=== PATIENT | female | born 1935 | race Caucasian/White ===

== ENCOUNTER 2018-07-16 12:01 | Inpatient (IN) ==
[2018-07-16] MEDS: *HR* HYDROcodone/Acet 5/325 mg TABLET PO PRN (13:51)
[2018-07-16] MEDS: Magnesium Oxide 400 MG TABLET PO SCH (13:52)
[2018-07-16] MEDS: Acetaminophen 325 MG TABLET PO SCH ×2 (16:58→22:58)
[2018-07-16] MEDS ORDERED: Albuterol 2.5 MG/3 ML NEBULIZER IH SCH (18:00)
[2018-07-16] MEDS ORDERED: ACETAMINOPHEN 650 MG PO SCH (18:00)
[2018-07-16] MEDS: Albuterol 2.5 MG/3 ML NEBULIZER IH PRN (19:24)
[2018-07-16] MEDS: Gabapentin 300 MG CAPSULE PO SCH (20:37)
[2018-07-16] MEDS: clonazePAM 0.5 MG TABLET PO SCH (20:37)
[2018-07-16] MEDS: PRO-OMEGA PO SCH (20:37)
[2018-07-16] MEDS: [UNRECOGNIZED DRUG - OTHER] PO SCH (20:37)
[2018-07-16] MEDS: Apixaban 5 MG TABLET PO SCH (20:37)
[2018-07-16] MEDS: RESTASIS OPTH OP SCH (20:39)
[2018-07-16] MEDS ORDERED: Budesonide/Formoterol 160/4.5 1 PUFF INH IH SCH (22:00)
[2018-07-17] MEDS: Albuterol 2.5 MG/3 ML NEBULIZER IH PRN ×2 (01:41→18:00)
[2018-07-17] MEDS: Acetaminophen 325 MG TABLET PO SCH ×3 (06:43→17:41)
[2018-07-17] MEDS ORDERED: Oxymetazoline Nasal SPRAY BOTTLE NS PRN (09:15)
[2018-07-17] MEDS: Apixaban 5 MG TABLET PO SCH ×2 (09:25→19:47)
[2018-07-17] MEDS: clonazePAM 0.5 MG TABLET PO SCH ×2 (09:25→19:47)
[2018-07-17] MEDS: [UNRECOGNIZED DRUG - OTHER] PO SCH ×2 (09:25→19:47)
[2018-07-17] MEDS: PRO-OMEGA PO SCH ×2 (09:25→19:47)
[2018-07-17] MEDS: Gabapentin 300 MG CAPSULE PO SCH ×2 (09:26→19:47)
[2018-07-17] MEDS: *HR* HYDROcodone/Acet 5/325 mg TABLET PO PRN ×2 (09:26→17:51)
[2018-07-17] MEDS: Furosemide 40 MG TABLET PO SCH (09:26)
[2018-07-17] MEDS: RESTASIS OPTH OP SCH ×2 (09:26→19:48)
[2018-07-17] MEDS ORDERED: VILANTEROL PO SCH (10:00)
[2018-07-17] MEDS ORDERED: FLUTICASONE FUROATE PO SCH (10:00)
[2018-07-17] MEDS: Budesonide/Formoterol 160/4.5 1 PUFF INH IH SCH ×2 (10:19→21:54)
[2018-07-17] MEDS: Magnesium Oxide 400 MG TABLET PO SCH (12:57)
[2018-07-18] MEDS: Acetaminophen 325 MG TABLET PO SCH ×4 (01:00→18:13)
[2018-07-18] MEDS: *HR* HYDROcodone/Acet 5/325 mg TABLET PO PRN ×3 (02:22→20:38)
[2018-07-18] MEDS: PRO-OMEGA PO SCH ×2 (08:07→20:26)
[2018-07-18] MEDS: RESTASIS OPTH OP SCH ×2 (08:07→20:27)
[2018-07-18] MEDS: [UNRECOGNIZED DRUG - OTHER] PO SCH ×2 (08:07→20:26)
[2018-07-18] MEDS: clonazePAM 0.5 MG TABLET PO SCH ×2 (08:07→20:26)
[2018-07-18] MEDS: Furosemide 40 MG TABLET PO SCH (08:07)
[2018-07-18] MEDS: Gabapentin 300 MG CAPSULE PO SCH ×2 (08:07→20:26)
[2018-07-18] MEDS: Apixaban 5 MG TABLET PO SCH ×2 (08:08→20:26)
[2018-07-18] MEDS: Budesonide/Formoterol 160/4.5 1 PUFF INH IH SCH ×2 (10:14→21:03)
[2018-07-18] MEDS: Albuterol 2.5 MG/3 ML NEBULIZER IH PRN ×2 (12:00→21:02)
--- NOTE | 2018-07-18 12:42 | Internal Med Progress Note ---
Date of Encounter: 07/18/18 Time of Encounter: 12:30 - Assessment and plan (1) Weakness Current Visit: Yes Status: Acute Assessment and plan: July 18. Continue PT/OT intervention. (2) Hypertension Current Visit: No Status: Chronic Assessment and plan: July 18. Continue Betapace and Lasix Qualifiers: Hypertension type: essential hypertension Qualified Code(s): I10 - Essential (primary) hypertension (3) Atrial fibrillation Current Visit: No Status: Chronic Assessment and plan: July 18. Continue Eliquis and Betapace Qualifiers: Atrial fibrillation type: chronic Qualified Code(s): I48.2 - Chronic atrial fibrillation (4) Anemia Current Visit: No Status: Acute Assessment and plan: July 18. Anemia testing 07/14/2018 showed no factor deficiency. Continue to monitor labs. Qualifiers: Anemia type: unspecified type Qualified Code(s): D64.9 - Anemia, unspecified (5) Right middle lobe syndrome Current Visit: No Status: Acute Assessment and plan: July 18. Attempts will be made to retrieve bronchoscopy report from [facility] January 2018. (6) Leg pain, bilateral Current Visit: Yes Status: Acute Assessment and plan: July 18. She has had 3 right foot surgeries with history of ankle fusion. Continue scheduled Tylenol and gabapentin with prn [place]. Add scheduled Cymbalta - Subjective Interval history: July 18. She was hospitalized in acute-care July 12- after presenting with acute bronchitis. Antibiotics were discontinued after pro calcitonin level returned WNL at 0.04. Chest CT showed complete collapse of RML. She developed acute worsening of which improved prior to discharge. It was felt she would benefit from therapy in swing bed prior to returning to independent living at home. She has no new complaints today except poor sleep last night due to significant pain in her feet right more than left. - Constitutional Vitals: Temp Pulse Resp BP Pulse Ox 98.0 F 67 14 116/76 94 07/18/18 07:41 07/18/18 07:41 07/18/18 12:00 07/18/18 07:41 07/18/18 12:00 Exam: She is sitting in a chair at bedside resting comfortably. Her affect is bright and cheerful. Heart is regular without murmurs gallops or ectopics. Lungs are clear. Extremities show no pitting edema. I reviewed her medications and lab results. Consult Discharge Plan - Plan Referrals: Harsh Santos [Primary Care Provider] - 1 week
[2018-07-18] MEDS: Magnesium Oxide 400 MG TABLET PO SCH (12:45)
[2018-07-19] MEDS: Acetaminophen 325 MG TABLET PO SCH ×4 (00:39→16:57)
[2018-07-19] MEDS: *HR* HYDROcodone/Acet 5/325 mg TABLET PO PRN ×3 (03:42→20:50)
[2018-07-19] MEDS: clonazePAM 0.5 MG TABLET PO SCH ×2 (09:22→20:50)
[2018-07-19] MEDS: Apixaban 5 MG TABLET PO SCH ×2 (09:22→20:50)
[2018-07-19] MEDS: Gabapentin 300 MG CAPSULE PO SCH ×2 (09:23→20:50)
[2018-07-19] MEDS: Furosemide 40 MG TABLET PO SCH (09:23)
[2018-07-19] MEDS: [UNRECOGNIZED DRUG - OTHER] PO SCH ×2 (09:27→20:50)
[2018-07-19] MEDS: PRO-OMEGA PO SCH ×2 (09:28→20:50)
[2018-07-19] MEDS: RESTASIS OPTH OP SCH ×2 (09:28→20:50)
[2018-07-19] MEDS: Albuterol 2.5 MG/3 ML NEBULIZER IH PRN ×2 (10:03→20:08)
[2018-07-19] MEDS: Budesonide/Formoterol 160/4.5 1 PUFF INH IH SCH ×2 (10:03→21:30)
[2018-07-19] MEDS: Magnesium Oxide 400 MG TABLET PO SCH (12:25)
[2018-07-20] MEDS: Acetaminophen 325 MG TABLET PO SCH ×5 (00:59→23:05)
[2018-07-20] MEDS: Furosemide 40 MG TABLET PO SCH (10:12)
[2018-07-20] MEDS: Apixaban 5 MG TABLET PO SCH ×2 (10:13→21:06)
[2018-07-20] MEDS: *HR* HYDROcodone/Acet 5/325 mg TABLET PO PRN ×2 (10:13→23:05)
[2018-07-20] MEDS: Gabapentin 300 MG CAPSULE PO SCH ×2 (10:14→21:06)
[2018-07-20] MEDS: clonazePAM 0.5 MG TABLET PO SCH ×2 (10:14→21:06)
[2018-07-20] MEDS: [UNRECOGNIZED DRUG - OTHER] PO SCH ×2 (10:22→21:11)
[2018-07-20] MEDS: RESTASIS OPTH OP SCH ×2 (10:22→21:07)
[2018-07-20] MEDS: PRO-OMEGA PO SCH ×2 (10:22→21:12)
[2018-07-20] MEDS: Budesonide/Formoterol 160/4.5 1 PUFF INH IH SCH ×2 (10:45→22:07)
[2018-07-20] MEDS: Albuterol 2.5 MG/3 ML NEBULIZER IH PRN ×2 (10:46→22:07)
[2018-07-20] MEDS: Magnesium Oxide 400 MG TABLET PO SCH (12:05)
[2018-07-21] MEDS: Acetaminophen 325 MG TABLET PO SCH ×3 (06:21→17:36)
[2018-07-21] MEDS: PRO-OMEGA PO SCH ×2 (09:17→20:36)
[2018-07-21] MEDS: [UNRECOGNIZED DRUG - OTHER] PO SCH ×2 (09:17→20:36)
[2018-07-21] MEDS: clonazePAM 0.5 MG TABLET PO SCH ×2 (09:18→20:36)
[2018-07-21] MEDS: Gabapentin 300 MG CAPSULE PO SCH ×2 (09:18→20:36)
[2018-07-21] MEDS: Furosemide 40 MG TABLET PO SCH (09:18)
[2018-07-21] MEDS: Apixaban 5 MG TABLET PO SCH ×2 (09:18→20:36)
[2018-07-21] MEDS: RESTASIS OPTH OP SCH ×2 (09:19→20:36)
[2018-07-21] MEDS: Budesonide/Formoterol 160/4.5 1 PUFF INH IH SCH ×2 (11:07→22:22)
[2018-07-21] MEDS: *HR* HYDROcodone/Acet 5/325 mg TABLET PO PRN (12:20)
[2018-07-21] MEDS: Magnesium Oxide 400 MG TABLET PO SCH (12:21)
[2018-07-21] MEDS: Albuterol 2.5 MG/3 ML NEBULIZER IH PRN (22:22)
[2018-07-22] MEDS: *HR* HYDROcodone/Acet 5/325 mg TABLET PO PRN ×2 (00:07→12:05)
[2018-07-22] MEDS: Acetaminophen 325 MG TABLET PO SCH ×4 (00:07→17:41)
[2018-07-22] MEDS: clonazePAM 0.5 MG TABLET PO SCH ×2 (09:34→22:03)
[2018-07-22] MEDS: Apixaban 5 MG TABLET PO SCH ×2 (09:34→22:03)
[2018-07-22] MEDS: Gabapentin 300 MG CAPSULE PO SCH ×2 (09:34→22:03)
[2018-07-22] MEDS: Furosemide 40 MG TABLET PO SCH (09:34)
[2018-07-22] MEDS: [UNRECOGNIZED DRUG - OTHER] PO SCH ×2 (09:35→22:04)
[2018-07-22] MEDS: RESTASIS OPTH OP SCH ×2 (09:35→22:04)
[2018-07-22] MEDS: PRO-OMEGA PO SCH ×2 (09:35→22:04)
[2018-07-22] MEDS: Budesonide/Formoterol 160/4.5 1 PUFF INH IH SCH ×2 (10:29→21:20)
[2018-07-22] MEDS: Albuterol 2.5 MG/3 ML NEBULIZER IH PRN ×2 (10:31→21:21)
[2018-07-22] MEDS: Magnesium Oxide 400 MG TABLET PO SCH (12:05)
--- NOTE | 2018-07-22 17:19 | Internal Med Progress Note ---
Date of Encounter: 07/22/18 Time of Encounter: 17:10 - Assessment and plan (1) Weakness Current Visit: Yes Status: Acute Assessment and plan: July 18. Continue PT/OT intervention. July 22. Anticipate discharge home 07/24/2018. (2) Hypertension Current Visit: No Status: Chronic Assessment and plan: July 18. Continue Betapace and Lasix Qualifiers: Hypertension type: essential hypertension Qualified Code(s): I10 - Essential (primary) hypertension (3) Atrial fibrillation Current Visit: No Status: Chronic Assessment and plan: July 18. Continue Eliquis and Betapace Qualifiers: Atrial fibrillation type: chronic Qualified Code(s): I48.2 - Chronic atrial fibrillation (4) Anemia Current Visit: No Status: Acute Assessment and plan: July 18. Anemia testing 07/14/2018 showed no factor deficiency. Continue to monitor labs. July 22. Recheck labs in a.m. Qualifiers: Anemia type: unspecified type Qualified Code(s): D64.9 - Anemia, unspecified (5) Right middle lobe syndrome Current Visit: No Status: Acute Assessment and plan: July 18. Attempts will be made to retrieve bronchoscopy report from [facility] January 2018. (6) Leg pain, bilateral Current Visit: Yes Status: Acute Assessment and plan: July 18. She has had 3 right foot surgeries with history of ankle fusion. Continue scheduled Tylenol and gabapentin with prn [place]. Add scheduled Cymbalta July 22. She did not mention leg pain today. Continue present Rx. (7) Hypomagnesemia Current Visit: No Status: Resolved Assessment and plan: July 22. Discontinue magnesium oxide. - Subjective Interval history: July 18. She was hospitalized in acute-care July 12- after presenting with acute bronchitis. Antibiotics were discontinued after pro calcitonin level returned WNL at 0.04. Chest CT showed complete collapse of RML. She developed acute worsening of which improved prior to discharge. It was felt she would benefit from therapy in swing bed prior to returning to independent living at home. She has no new complaints today except poor sleep last night due to significant pain in her feet right more than left. July 22. She reports looseness of stools and nasal congestion. - Constitutional Vitals: Temp Pulse Resp BP Pulse Ox 98.3 F 66 16 122/60 98 07/22/18 11:58 07/22/18 11:58 07/22/18 11:58 07/22/18 11:58 07/22/18 11:58 Exam: She is sitting in chair at bedside resting comfortably. Her affect is bright and cheerful. I reviewed her medications and lab results. Consult Discharge Plan - Plan Referrals: Harsh Santos [Primary Care Provider] - 1 week
[2018-07-22] MEDS: Oxymetazoline Nasal SPRAY BOTTLE NS SCH (17:41)
[2018-07-23] MEDS: Acetaminophen 325 MG TABLET PO SCH ×4 (00:49→17:00)
[2018-07-23] MEDS: Oxymetazoline Nasal SPRAY BOTTLE NS SCH ×2 (06:22→17:00)
[2018-07-23 08:12] LABS: Hematocrit 32.4 % (35.3-44.9); Hemoglobin 10.2 g/dL (11.5-15.4); Mean Corpuscular HGB Conc 31.5 g/dL (31.6-35.5); Mean Corpuscular Hemoglobin 28.6 pg (28.0-33.3); Mean Corpuscular Volume 90.8 fL (83.0-100.0); Mean Platelet Volume 13.2 fL (9.4-12.4); Red Blood Count 3.57 M/mcL (3.82-4.97); White Blood Count 5.4 K/mcL (4.3-11.1)
[2018-07-23 08:25] LABS: Platelet Count 52 K/mcL (140-400)
[2018-07-23] MEDS: Gabapentin 300 MG CAPSULE PO SCH ×2 (09:08→21:49)
[2018-07-23] MEDS: Apixaban 5 MG TABLET PO SCH ×2 (09:09→21:49)
[2018-07-23] MEDS: clonazePAM 0.5 MG TABLET PO SCH ×2 (09:09→21:50)
[2018-07-23] MEDS: Furosemide 40 MG TABLET PO SCH (09:09)
[2018-07-23] MEDS: PRO-OMEGA PO SCH ×2 (09:10→21:50)
[2018-07-23] MEDS: [UNRECOGNIZED DRUG - OTHER] PO SCH ×2 (09:10→21:50)
[2018-07-23] MEDS: RESTASIS OPTH OP SCH ×2 (09:11→21:50)
[2018-07-23 09:13] LABS: Lymphocytes # 1.6 K/mcL (0.6-4.6); Monocytes # 2.1 K/mcL (0.0-1.3); Neutrophils # 1.7 K/mcL (1.6-8.9); Platelet Estimate Decreased (Normal); Reactive Lymphocytes Present (Not Present)
[2018-07-23] MEDS: *HR* HYDROcodone/Acet 5/325 mg TABLET PO PRN (09:23)
[2018-07-23 09:40] LABS: BUN/Creatinine Ratio 17 (6-26); Blood Urea Nitrogen 16 mg/dL (8-23); Calcium 8.8 mg/dL (8.6-10.3); Carbon Dioxide 40 mEq/L (23-29); Chloride 98 mEq/L (98-107); Glucose 126 mg/dL (70-105); Magnesium 1.6 mg/dL (1.6-2.6); Osmolality,Calculated 295 (280-300); Potassium 4.1 mEq/L (3.5-5.1); Sodium 141 mEq/L (136-145); eGFR For African Americans > 60 (> 60); eGFR For Non-African Americans 57 (> 60)
[2018-07-23] MEDS: Albuterol 2.5 MG/3 ML NEBULIZER IH PRN (10:23)
[2018-07-23] MEDS: Budesonide/Formoterol 160/4.5 1 PUFF INH IH SCH ×2 (10:23→21:41)
[2018-07-23 18:32] VITALS: BP 164/66
[2018-07-24] MEDS: Acetaminophen 325 MG TABLET PO SCH ×2 (00:03→06:41)
[2018-07-24] MEDS: Oxymetazoline Nasal SPRAY BOTTLE NS SCH (06:41)
[2018-07-24] MEDS: Furosemide 40 MG TABLET PO SCH (08:44)
[2018-07-24] MEDS: Apixaban 5 MG TABLET PO SCH (08:44)
[2018-07-24] MEDS: Gabapentin 300 MG CAPSULE PO SCH (08:44)
[2018-07-24] MEDS: clonazePAM 0.5 MG TABLET PO SCH (08:45)
[2018-07-24] MEDS: PRO-OMEGA PO SCH (08:47)
[2018-07-24] MEDS: [UNRECOGNIZED DRUG - OTHER] PO SCH (08:48)
[2018-07-24] MEDS: RESTASIS OPTH OP SCH (08:49)
[2018-07-24] MEDS: Budesonide/Formoterol 160/4.5 1 PUFF INH IH SCH (11:24)
--- NOTE | 2018-07-24 11:46 | Discharge Summary ---
Date of Encounter: 07/24/18 Time of Encounter: 11:30 - Discharge Diagnosis (1) Weakness Priority: Primary Status: Acute (2) Hypertension Priority: Secondary Status: Chronic Qualifiers: Hypertension type: essential hypertension Qualified Code(s): I10 - Essential (primary) hypertension (3) Atrial fibrillation Priority: Secondary Status: Chronic Qualifiers: Atrial fibrillation type: chronic Qualified Code(s): I48.2 - Chronic atrial fibrillation (4) Anemia Priority: Secondary Status: Chronic Qualifiers: Anemia type: unspecified type Qualified Code(s): D64.9 - Anemia, unspecified (5) Right middle lobe syndrome Priority: Secondary Status: Acute (6) Leg pain, bilateral Priority: Secondary Status: Acute (7) Hypomagnesemia Priority: Secondary Status: Resolved Hospital course: Ms. Veronica is a 83 year old female was hospitalized in acute-care July 12- after presenting with acute bronchitis. Antibiotics were discontinued after pro calcitonin level returned WNL at 0.04. Chest CT showed complete collapse of RML. She developed acute renal function worsening which improved prior to discharge. It was felt she would benefit from therapy in swing bed prior to returning to independent living at home. She continued physical therapy and occupational therapy evaluation. She had gradual improvement and was able to ambulate more than 200 feet of discharge. Blood pressure remained well controlled on Betapace and Lasix. BUN and creatinine showed gradual improvement to 16 and 0.93 respectively by 07/23/2018. Estimated GFR was 57. A copy of the January 2018 bronchoscopy report was obtained from [facility]. There was significant mucus plugging throughout the tracheobronchial tree. 1 L of lavage fluid was used to clear the lungs. I reviewed this report with the patient and her daughter on the day of discharge and told them I felt it was possible that the right middle lobe collapse seen on chest CT scan during her acute care stay was due to mucus plugging. Her PCP can refer her to pulmonology for follow-up. On July 24 arrangements were complete for her to be discharged home. She chose to follow with Dr. Leger after discharge. - Time Spent with Patient Total time spent providing and/or coordinating discharge services: - Discharge Medications Prescriptions: Continued Acetaminophen [8Hr Arthritis Pain Relief] 650 mg PO Q6HR Sotalol [Betapace] 40 mg PO QPM Sertraline [Zoloft] 25 mg PO DAILY Sotalol [Betapace] 80 mg PO QAM Omeprazole [PriLOSEC] 40 mg PO DAILY Lidocaine Patch [Lidoderm 5% patch] 1 each TP DAILY Gabapentin [Neurontin] 600 mg PO BID Budesonide/Formoterol 160/4.5 [Symbicort 160/4.5] 1 puff IH BIDR Apixaban [Eliquis] 5 mg PO BID Albuterol Sulfate [Proair Hfa] 1 puff IH QID PRN PRN Reason: Wheezing Albuterol Neb [Proventil Neb] 2.5 mg IH Q6HR Gluc/Noam-MSM#1/C/Michael/Apolinar/Bor [Osteo Bi-Flex Caplet] 1 each PO Biotin 1 mg PO Furosemide [Lasix] 40 mg PO DAILY tablet Potassium Chloride 10 meq PO BIDWM tab.er.prt Changed clonazePAM [Clonazepam] 0.25 mg PO BID PRN #0 PRN Reason: Anxiety Discontinued Magnesium Oxide [Mag-Ox] 400 mg PO Q24H tablet Home Medications: Acetaminophen [8Hr Arthritis Pain Relief] 650 mg PO Q6HR 07/12/18 [History] Albuterol Neb [Proventil Neb] 2.5 mg IH Q6HR 07/12/18 [History] Albuterol Sulfate [Proair Hfa] 1 puff IH QID PRN 07/12/18 [History] Apixaban [Eliquis] 5 mg PO BID 07/12/18 [History] Biotin 1 mg PO 07/12/18 [History] Budesonide/Formoterol 160/4.5 [Symbicort 160/4.5] 1 puff IH BIDR 07/12/18 [History] Gabapentin [Neurontin] 600 mg PO BID 07/12/18 [History] Gluc/Noam-MSM#1/C/Michael/Apolinar/Bor [Osteo Bi-Flex Caplet] 1 each PO 07/12/18 [History] Lidocaine Patch [Lidoderm 5% patch] 1 each TP DAILY 07/12/18 [History] Omeprazole [PriLOSEC] 40 mg PO DAILY 07/12/18 [History] Sertraline [Zoloft] 25 mg PO DAILY 07/12/18 [History] Sotalol [Betapace] 40 mg PO QPM 07/12/18 [History] Sotalol [Betapace] 80 mg PO QAM 07/12/18 [History] Furosemide [Lasix] 40 mg PO DAILY tablet 07/16/18 [Rx] Potassium Chloride 10 meq PO BIDWM tab.er.prt 07/16/18 [Rx] clonazePAM [Clonazepam] 0.25 mg PO BID PRN #0 07/24/18 [Rx] Allergies/Adverse Reactions: Allergy/AdvReac Type Severity Reaction Status Date / Time tramadol [From Ultram] AdvReac Itching Verified 07/12/18 18:56 Date of admission: 07/16/18 12:14 Primary care physician: Reuben Leger M.D. Consults: 07/16/18 12:39 Consult to Occupational Therapy [CONS] Routine Comment: Evaluate, develop, and implement plan of care Reason for Consult: Evaluate, develop, and implement plan of care Does patient have active BEDREST order?: No Is patient medically & hemodynamically stable?: Yes Patient assessed for mobility or mobilized this visit?: No Consult to Physical Therapy [CONS] Routine Comment: Evaluate, develop, and implement plan of care Reason for Consult: Evaluate, develop, and implement plan of care Does patient have active BEDREST order?: No Is patient medically & hemodynamically stable?: Yes Patient assessed for mobility or mobilized this visit?: No Consult to Rehab Office Coordinator [CONS] Routine Reason for SW Consult: Discharge Planning - Constitutional Vitals: Temp Pulse Resp BP Pulse Ox 98.3 F 67 20 164/66 96 07/23/18 23:47 07/23/18 23:47 07/23/18 23:47 07/23/18 23:47 07/23/18 23:47 - Patient Status Disposition: Home, Self-Care - Discharge Instructions Follow Up With: Reuben Leger MD [Partnered Physician] - 1 week - Diet and Activity Activity: as per physical therapy Diet: advance to your usual diet
--- NOTE | 2018-07-24 12:04 | Physician Discharge Referral ---
Home Health/Hosp Referral Info Transfer to: Home Health Attending Provider: Everardo Provider in Charge Post Discharge: PCP Nellie) - Diagnosis (1) Weakness Priority: Primary Status: Acute (2) Hypertension Priority: Secondary Status: Chronic (3) Atrial fibrillation Priority: Secondary Status: Chronic (4) Anemia Priority: Secondary Status: Chronic (5) Right middle lobe syndrome Priority: Secondary Status: Acute (6) Leg pain, bilateral Priority: Secondary Status: Acute (7) Hypomagnesemia Priority: Secondary Status: Resolved - Respiratory Orders Smoking Cessation: Smoking cessation has been advised. For more information, call the [place] Tobacco Quit Line at 8-841-FMXI-NOW. - Diet/Nutrition Diet/Nutrition Orders: Cardiac, No Concentrated Sweets - Activity Activity Orders: Walker - Services Needed Following services are medically necessary services: Nursing, Home Health Aide, Physical Therapy, Occupational Therapy - Transfer Medications Home Medications: Acetaminophen [8Hr Arthritis Pain Relief] 650 mg PO Q6HR 07/12/18 [History] Albuterol Neb [Proventil Neb] 2.5 mg IH Q6HR 07/12/18 [History] Albuterol Sulfate [Proair Hfa] 1 puff IH QID PRN 07/12/18 [History] Apixaban [Eliquis] 5 mg PO BID 07/12/18 [History] Biotin 1 mg PO 07/12/18 [History] Budesonide/Formoterol 160/4.5 [Symbicort 160/4.5] 1 puff IH BIDR 07/12/18 [History] Gabapentin [Neurontin] 600 mg PO BID 07/12/18 [History] Gluc/Noam-MSM#1/C/Michael/Apolinar/Bor [Osteo Bi-Flex Caplet] 1 each PO 07/12/18 [History] Lidocaine Patch [Lidoderm 5% patch] 1 each TP DAILY 07/12/18 [History] Omeprazole [PriLOSEC] 40 mg PO DAILY 07/12/18 [History] Sertraline [Zoloft] 25 mg PO DAILY 07/12/18 [History] Sotalol [Betapace] 40 mg PO QPM 07/12/18 [History] Sotalol [Betapace] 80 mg PO QAM 07/12/18 [History] Furosemide [Lasix] 40 mg PO DAILY tablet 07/16/18 [Rx] Potassium Chloride 10 meq PO BIDWM tab.er.prt 07/16/18 [Rx] clonazePAM [Clonazepam] 0.25 mg PO BID PRN #0 07/24/18 [Rx] Allergies/Adverse Reactions: Allergy/AdvReac Type Severity Reaction Status Date / Time tramadol [From Ultram] AdvReac Itching Verified 07/12/18 18:56 Certification: Further, I certify that my clinical findings support that this patient is homebound (i.e. absences from home require considerable and taxing effort and are for medical reasons or buddhism services or infrequently or short duration when for other reasons) because: Homebound Reason: Leaving home requires considerable and taxing effort due to condition (Impaired walking ability) Attestation: My signature below is to certify that this patient is under my care and that I, or nurse practitioner, or a physician's assistant front end manager working with me, has a [id number] encounter with this patient.
== END 2018-07-24 12:34 | disposition home or self-care (01) | DRG 945 ==
LOC: INPPIK 12:14
PROVIDERS: ADMIT Internal Medicine; ATTEND Internal Medicine

== ENCOUNTER 2018-10-02 20:15 | Inpatient (IN) ==
--- NOTE | 2018-10-02 20:20 | Emergency Department Note ---
Disposition Clinical Impression: Acute exacerbation of chronic obstructive airways disease Anemia Qualifiers: Anemia type: unspecified type Qualified Code(s): D64.9 - Anemia, unspecified Disposition: Admitted As Inpatient Condition: Good Referrals: Reuben Leger MD [Primary Care Provider] - Forms: ED Satisfaction Letter Time of Disposition: 21:48 SOB HPI - General Chief Complaint: ED Shortness of Breath/Dyspnea Stated Complaint: difficulty breathing Time Seen by Provider: 10/02/18 20:27 Source: patient, family Mode of arrival: private vehicle Limitations: no limitations Nursing Notes Reviewed: Yes Vital Signs Reviewed: Yes - History of Present Illness Patient reports increased shortness of breath for 2-3 days. She states she has COPD for which she has a home oxygen requirement of 2 L by nasal cannula. She relates her oxygen saturations are usually 95-97%. She has had increased cough productive of some dark to cloudy phlegm. He denies chest pain or pressure. She denies fevers or chills or diaphoresis. She states she has some occasional dizziness and a generalized feeling of malaise and weakness. She has not noted any increased lower extremity swelling with volunteer she takes a water pill for that. Her dyspnea has been exertional but not positional. She states she does not have orthopnea. She denies any ill exposures. She is performed 3 albuterol breathing treatments today without relief and has been brought in by family for evaluation. She is saturating in the low 90s and upper 80s on her usual 2 L nasal cannula. Pt Subjective Complaint: shortness of breath Onset (ago): day(s) Severity: moderate Consistency/Duration: constant, gradually worsening Improves with: rest, bronchodilators Worsens with: exertion, movement, coughing Known history of: COPD Associated symptoms: Reports: cough, wheezing, sputum production. Denies: chest pain, pain with inspiration, fever, orthopnea, lower extremity pain, polyuria, polydipsia, parasthesias, palpitations, hemoptysis, diaphoresis, nausea/vomiting, syncope, abdominal pain, rash, sense of impending doom Treatment prior to arrival: oxygen, bronchodilator Cough present: Yes Cough Description: Voluntary, Productive, Rattling, Wheezy Cough Frequency: Intermittent Sputum production: Yes Sputum Amount: Scant - Related Data Home oxygen amount: 2 liters Home Medications Medication Instructions Recorded Confirmed Acetaminophen [8Hr Arthritis Pain 650 mg PO Q6HR 07/12/18 07/12/18 Relief] Albuterol Neb [Proventil Neb] 2.5 mg IH Q6HR 07/12/18 07/12/18 Albuterol Sulfate [Proair Hfa] 1 puff IH QID PRN 07/12/18 07/12/18 Apixaban [Eliquis] 5 mg PO BID 07/12/18 07/12/18 Biotin 1 mg PO 07/12/18 Budesonide/Formoterol 160/4.5 1 puff IH BIDR 07/12/18 07/12/18 [Symbicort 160/4.5] Gabapentin [Neurontin] 600 mg PO BID 07/12/18 07/12/18 Gluc/Noam-MSM#1/C/Michael/Apolinar/Bor 1 each PO 07/12/18 [Osteo Bi-Flex Caplet] Lidocaine Patch [Lidoderm 5% patch] 1 each TP DAILY 07/12/18 07/12/18 Omeprazole [PriLOSEC] 40 mg PO DAILY 07/12/18 07/12/18 Sertraline [Zoloft] 25 mg PO DAILY 07/12/18 07/12/18 Sotalol [Betapace] 40 mg PO QPM 07/12/18 07/12/18 Sotalol [Betapace] 80 mg PO QAM 07/12/18 07/12/18 Previous Rx's Medication Instructions Recorded Furosemide [Lasix] 40 mg PO DAILY tablet 07/16/18 Potassium Chloride 10 meq PO BIDWM tab.er.prt 07/16/18 clonazePAM [Clonazepam] 0.25 mg PO BID PRN #0 07/24/18 Allergies Allergy/AdvReac Type Severity Reaction Status Date / Time tramadol [From Ultram] AdvReac Itching Verified 10/02/18 20:22 All systems ED: reviewed and negative except as stated. Past Medical History - Past Medical History Attestation: Yes The following information was validated with the patient. 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 Absent: scleral icterus - ENT ENT exam: normal exam, normal oropharynx, mucous membranes moist - Neck Neck exam: Present: normal inspection, full ROM, trachea midline. Absent: tenderness, meningismus - Chest Chest inspection: Present: normal inspection, symmetric chest wall rise - Respiratory Respiratory exam: Present: respiratory distress, wheezes, prolonged expiratory phase, other (Diminished breath sounds in the bases). Absent: accessory muscle use - Cardiovascular Cardiovascular exam: Present: regular rate, normal rhythm, normal heart sounds. Absent: tachycardia - Abdominal Exam Abdominal exam: Present: soft, Non-Tender, normal bowel sounds. Absent: tenderness, distention, guarding, rebound, rigidity - Extremities Exam Extremities exam: Present: normal inspection, full ROM, normal capillary refill. Absent: tenderness, pedal edema, calf tenderness - Expanded Lower Extremity Exam Neurovascular/Tendon exam: Present: normal capillary refill. Absent: motor deficit, sensory deficit, tendon deficit Gait: observed and normal (With a walker) - Back Exam Back exam: Present: normal inspection, full ROM. Absent: tenderness - Neurological Exam Neurological exam: Present: alert, oriented X3 - Psychiatric Psychiatric exam: Present: normal affect, normal mood. Absent: agitated, anxious - Skin Skin exam: Present: warm, dry, intact, normal color. Absent: cyanosis, diaphoresis, pallor Course Course Narrative: All testing is been discussed with the patient, family and Dr. Mcgee. Anemia laboratory testing has been ordered as well as continuation of respiratory pr otocol. Verbal orders have been obtained for her observation. She is currently resting in improved condition with oxygen saturations in the mid 90s. Vital Signs Temperature 99.1 F 10/02/18 20:16 Pulse Rate 69 10/02/18 20:16 Respiratory Rate 18 10/02/18 20:16 Blood Pressure 112/49 10/02/18 20:16 O2 Sat by Pulse Oximetry 89 08/13/19 20:16 Temperature 99.1 F 10/02/18 20:16 Pulse Rate 69 10/02/18 20:16 Respiratory Rate 14 10/02/18 20:54 Blood Pressure 112/49 10/02/18 20:16 O2 Sat by Pulse Oximetry 93 10/02/18 20:54 Oxygen Delivery Oxygen Delivery Nasal Cannula Shortness of Breath/Dyspnea - Differential Diagnosis Likely: acute exacerbation of chronic obstructive airways disease, congestive heart failure, pneumonia, asthma with exacerbation - Medical Records Medical records reviewed: Yes I reviewed the patient's medical records. - Lab Data Lab results reviewed: Yes I reviewed the patient's lab results. Result diagrams: 10/02/18 20:47 10/02/18 20:47 Lab Results 10/02/18 10/02/18 10/02/18 Range/Units 20:47 20:47 20:47 WBC 15.8 H (4.3-11.1) K/mcL RBC 2.80 L (3.82-4.97) M/mcL Hgb 8.0 L (11.5-15.4) g/dL Hct 25.9 L (35.3-44.9) % MCV 92.5 (83.0-100.0) fL MCH 28.6 (28.0-33.3) pg MCHC 30.9 L (31.6-35.5) g/dL RDW 14.3 (11.5-14.5) % Plt Count 63 L (140-400) K/mcL MPV 11.8 (9.4-12.4) fL Immature Gran % 3.1 (0-4) % Seg Neutrophils % 48.0 % Lymphocytes % 10.4 % Monocytes % 38.0 % Eosinophils % 0.4 % Basophils % 0.1 % Neutrophils # 7.6 (1.6-8.9) K/mcL Lymphocytes # 1.6 (0.6-4.6) K/mcL Monocytes # 6.0 H (0.0-1.3) K/mcL Eosinophils # 0.1 (0.0-0.6) K/mcL Basophils # 0.0 (0.0-0.2) K/mcL Platelet Estimate Decreased L (Normal) PT 21.9 H (9.4-12.1) Seconds INR 1.9 Sodium 136 (136-145) mEq/L Potassium 4.3 (3.5-5.1) mEq/L Chloride 95 L (98-107) mEq/L Carbon Dioxide 36 H (23-29) mEq/L BUN 20 (8-23) mg/dL Creatinine 1.11 (0.60-1.20) mg/dL Est GFR ( Amer) 57 L (> 60) Est GFR (Non-Af Amer) 47 L (> 60) BUN/Creatinine Ratio 18 (6-26) Glucose 130 H (70-105) mg/dL Calculated Osmolality 286 (280-300) Lactic Acid (0.5-2.2) mmol/L Calcium 8.7 (8.6-10.3) mg/dL Troponin I < 0.03 (< 0.04) ng/mL B-Natriuretic Peptide (Less than 100) pg/mL 10/02/18 10/02/18 Range/Units 20:47 20:47 WBC (4.3-11.1) K/mcL RBC (3.82-4.97) M/mcL Hgb (11.5-15.4) g/dL Hct (35.3-44.9) % MCV (83.0-100.0) fL MCH (28.0-33.3) pg MCHC (31.6-35.5) g/dL RDW (11.5-14.5) % Plt Count (140-400) K/mcL MPV (9.4-12.4) fL Immature Gran % (0-4) % Seg Neutrophils % % Lymphocytes % % Monocytes % % Eosinophils % % Basophils % % Neutrophils # (1.6-8.9) K/mcL Lymphocytes # (0.6-4.6) K/mcL Monocytes # (0.0-1.3) K/mcL Eosinophils # (0.0-0.6) K/mcL Basophils # (0.0-0.2) K/mcL Platelet Estimate (Normal) PT (9.4-12.1) Seconds INR Sodium (136-145) mEq/L Potassium (3.5-5.1) mEq/L Chloride (98-107) mEq/L Carbon Dioxide (23-29) mEq/L BUN (8-23) mg/dL Creatinine (0.60-1.20) mg/dL Est GFR ( Amer) (> 60) Est GFR (Non-Af Amer) (> 60) BUN/Creatinine Ratio (6-26) Glucose (70-105) mg/dL Calculated Osmolality (280-300) Lactic Acid 1.1 (0.5-2.2) mmol/L Calcium (8.6-10.3) mg/dL Troponin I (< 0.04) ng/mL B-Natriuretic Peptide 365 H (Less than 100) pg/mL - Radiology Data Radiology results reviewed: Yes I reviewed the patient's radiology results. Single view chest x-ray is performed. This does not demonstrate evidence for infiltrate, effusion, pneumothorax, foreign body or heart failure. Patient has some fullness in the right hilum. The cardiac silhouette is mildly enlarged but stable. I do not see abnormality to the osseous structures of the chest. This is on my interpretation. Impressions Chest X-Ray 10/02/18 20:32 IMPRESSION: Mild cardiomegaly and mild pulmonary vascular congestion. Mild bibasilar pleural and parenchymal disease likely represents edema and or atelectasis with trace pleural fluid. Underlying basilar pneumonia not excluded. D/ / Bhargav Kaplan MD / Bhargav Kaplan MD Interpreting Provider: Bhargav Kaplan MD - EKG Data EKG attestation: Yes I reviewed and interpreted this EKG. EKG shows normal: Reports: sinus rhythm, axis, intervals, QRS complexes, ST-T waves Rate: Reports: normal (78) [place]/QRS: Reports: RBBB, LAHB/LAFB Interpretation: Reports: no acute changes
[2018-10-02] MEDS ORDERED: methylPREDNISolone 125 MG/2 ML VIAL IVP ONE (20:32)
[2018-10-02] MEDS ORDERED: Azithromycin 500 MG in D5% in Water 250 ML IVPB ONE (20:32)
[2018-10-02] MEDS ORDERED: cefTRIAXone 2,000 MG in Water for inj. (sterile) 10 ML IVP ONE (20:32)
[2018-10-02] MEDS ORDERED: Ipratropium/Albuterol Neb 3 ML IH ONE (20:32)
[2018-10-02 20:54] LABS: Basophils % 0.1 %; Eosinophils # 0.1 K/mcL (0.0-0.6); Eosinophils % 0.4 %; Hematocrit 25.9 % (35.3-44.9); Immature Granulocytes % 3.1 % (0-4); Lymphocytes % 10.4 %; Mean Corpuscular HGB Conc 30.9 g/dL (31.6-35.5); Mean Corpuscular Hemoglobin 28.6 pg (28.0-33.3); Mean Corpuscular Volume 92.5 fL (83.0-100.0); Mean Platelet Volume 11.8 fL (9.4-12.4); Neutrophils # 7.6 K/mcL (1.6-8.9); Red Cell Distribution Width 14.3 % (11.5-14.5); White Blood Count 15.8 K/mcL (4.3-11.1)
[2018-10-02 20:56] LABS: Lymphocytes # 1.6 K/mcL (0.6-4.6); Platelet Count 63 K/mcL (140-400)
[2018-10-02 21:09] LABS: BUN/Creatinine Ratio 18 (6-26); Blood Urea Nitrogen 20 mg/dL (8-23); Calcium 8.7 mg/dL (8.6-10.3); Carbon Dioxide 36 mEq/L (23-29); Chloride 95 mEq/L (98-107); Glucose 130 mg/dL (70-105); INR 1.9; Osmolality,Calculated 286 (280-300); Potassium 4.3 mEq/L (3.5-5.1); Prothrombin Time 21.9 Seconds (9.4-12.1); Sodium 136 mEq/L (136-145); eGFR For African Americans 57 (> 60); eGFR For Non-African Americans 47 (> 60)
[2018-10-02 21:13] LABS: Troponin I < 0.03 ng/mL (< 0.04)
[2018-10-02 21:18] LABS: Platelet Estimate Decreased (Normal)
[2018-10-02] MEDS ORDERED: Mag Hydrox/Al Hydrox/Simeth 30 ML UDC PO PRN (22:34)
[2018-10-02] MEDS ORDERED: Ondansetron ODT 4 MG TAB.RAPDIS SL PRN (22:34)
[2018-10-02] MEDS ORDERED: MOM Conc 10 ML UD.LIQ PO PRN (22:34)
[2018-10-02] MEDS ORDERED: Naloxone 0.4 MG/ML INJ IVP PRN (22:34)
[2018-10-02] MEDS: Ipratropium/Albuterol Neb 3 ML IH SCH (22:57)
[2018-10-02] MEDS: 0.9 % Sodium Chloride 1,000 ML IVC SCH (23:05)
[2018-10-03] MEDS: *HR* HYDROcodone/Acet 10/325 mg TABLET PO PRN ×3 (02:07→18:23)
[2018-10-03] MEDS: Ipratropium/Albuterol Neb 3 ML IH SCH ×4 (03:59→21:23)
[2018-10-03] MEDS: 0.9 % Sodium Chloride 1,000 ML IVC SCH (08:27)
[2018-10-03 09:09] LABS: % Iron Saturation 5 % (15-50); Iron 15 mcg/dL (50-170); Transferrin 212 mg/dL (203-362)
[2018-10-03 09:27] LABS: Ferritin 138 ng/mL (10-120)
[2018-10-03 13:30] LABS: Folate > 22.3 ng/mL (3.0-16.0); Vitamin B12 648 pg/mL (250-1100)
--- NOTE | 2018-10-03 14:43 | Internal Med History&Physical ---
Date of Encounter: 10/03/18 Time of Encounter: 14:05 Assessment and Plan (1) Acute exacerbation of chronic obstructive airways disease Current visit: Yes Status: Acute She has been started on Rocephin and Zithromax with steroids through emergency room. Lactobacillus will be added. (2) DM type 2 (diabetes mellitus, type 2) Current visit: Yes Status: Chronic She reports she has "borderline diabetes". Hemoglobin A1c will be checked in a.m. Qualifiers: Diabetes mellitus jail insulin use: without jail use Diabetes mellitus complication status: with kidney complications Diabetes mellitus complication detail: with chronic kidney disease Chronic kidney disease stage: stage 3 (moderate) Qualified Code(s): E11.22 - Type 2 diabetes mellitus with diabetic chronic kidney disease; N18.3 - Chronic kidney disease, stage 3 (moderate) (3) CKD (chronic kidney disease) stage 3, GFR 30-59 ml/min Current visit: Yes Status: Chronic Monitor renal indices. (4) Hypertension Current visit: No Status: Chronic Continue Betapace. Qualifiers: Hypertension type: essential hypertension Qualified Code(s): I10 - Essential (primary) hypertension (5) Atrial fibrillation Current visit: No Status: Chronic Continue Eliquis, diltiazem, and Betapace. I explained to her the primary purp ose of Betapace was to maintain NSR but she was getting secondary benefits of antihypertension effect and preventing RVR from use. Qualifiers: Atrial fibrillation type: chronic Qualified Code(s): I48.2 - Chronic atrial fibrillation (6) Non Hodgkin's lymphoma Current visit: No Status: Chronic As per oncologist Qualifiers: Non-Hodgkin lymphoma type: unspecified type Lymphoma site: unspecified region Qualified Code(s): C85.90 - Non-Hodgkin lymphoma, unspecified, unspecified site (7) Anemia Current visit: Yes Status: Chronic Anemia testing today showed iron 15, transferrin saturation 5%, transferrin 212, ferritin 138, B12 648, and folate > 22.3. She reports taking daily oral iron replacement at home but it appears she is not absorbing adequate amounts. She will receive iron dextran infusion. Qualifiers: Anemia type: unspecified type Qualified Code(s): D64.9 - Anemia, unspecified (8) Thrombocytopenia Current visit: No Status: Chronic Stable. Continue to monitor platelet counts periodically. Internal Medicine - H&P: HPI Chief complaint: Dyspnea Admitted From: Emergency Dept Plans for Post Hospital Care: Home History of present illness: Ms. Veronica is a 83 year old female who came to emergency room complaining of increased dyspnea onset afternoon of 09/30/2018. She had increasing weakness over the next 2 days. She reports minimal cough with occasional greenish sputum production. She denies vomiting diarrhea or significant pain. She was evaluated in emergency room and was felt to have exacerbation of COPD. She was admitted to [facility] floor for ongoing care needs. Respiratory history is significant for having smoked from age [age] up to one pa ck per day. She does not recall having PFTs. She has been diagnosed with COPD and uses oxygen 12/09. She has not been tested for sleep apnea. A copy of the January 2018 bronchoscopy report was obtained from [facility] during her July 2018 [facility] hospitalization. There was significant mucus plugging throughout the tracheobronchial tree. 1 L of lavage fluid was used to clear the lungs. I reviewed this report with the patient and her daughter on the day of discharge and told them I felt it was possible that the right middle lobe collapse seen on chest CT scan during her acute care stay was due to mucus plugging. She reports she has not seen pulmonology since discharge from [facility]. Past Med Surg Social Fam HX - Past Medical History Medical history: atrial fibrillation, cancer, COPD, hypertension, other Additional medical history: lymphomia, neropathy Psychiatric history: anxiety, depression - Past Surgical History Surgical History: cancer surgery, herniorrhaphy, orthopedic, other, other Additional surgical history: brochoscopy, right foot, rotator cuff, lymphomia removed from under left arm - Social History Smoking Status: Former smoker Smokeless Tobacco Status: No Alcohol use: none Drug use: none Internal Medicine - H&P: Meds Albuterol Neb [Proventil Neb] 2.5 mg IH Q6HR 07/12/18 [History] Albuterol Sulfate [Proair Hfa] 1 puff IH QID PRN 07/12/18 [History] Apixaban [Eliquis] 5 mg PO BID 07/12/18 [History] Biotin 1 mg PO DAILY 07/12/18 [History] Gabapentin [Neurontin] 600 mg PO TID 07/12/18 [History] Gluc/Noam-MSM#1/C/Michael/Apolinar/Bor [Osteo Bi-Flex Caplet] 1 each PO DAILY 07/12/18 [History] Lidocaine Patch [Lidoderm 5% patch] 1 each TP DAILY 07/12/18 [History] Omeprazole [PriLOSEC] 40 mg PO DAILY 07/12/18 [History] Sertraline [Zoloft] 25 mg PO DAILY 07/12/18 [History] Sotalol [Betapace] 40 mg PO QPM 07/12/18 [History] Sotalol [Betapace] 80 mg PO QAM 07/12/18 [History] Potassium Chloride 10 meq PO BIDWM tab.er.prt 07/16/18 [Rx] Diltiazem HCl [Tiazac] 180 mg PO DAILY 10/02/18 [History] Fluticasone/Vilanterol [Breo Ellipta 100-25 Mcg INH] 1 each IH DAILY 10/02/18 [History] Furosemide [Lasix] 20 mg PO BID 10/02/18 [History] HYDROcodone/Acet 10/325 mg [[place] 10-325 mg] 1 tab PO Q6HR PRN 10/02/18 [History] [place]-3 Fatty Acids [Fish Oil] 300 mg PO BID 10/02/18 [History] Cholecalciferol (Vitamin D3) [Vitamin D] 400 unit PO DAILY 10/03/18 [History] Ferrous Sulfate [Iron] 325 mg PO DAILY 10/03/18 [History] Magnesium Oxide [Magnesium] 250 mg PO DAILY 10/03/18 [History] Non-Formulary Medication 2 cap PO BID 10/03/18 [History] Non-Formulary Medication 2 cap PO DAILY 10/03/18 [History] Allergy/AdvReac Type Severity Reaction Status Date / Time tramadol [From Ultram] AdvReac Itching Verified 10/02/18 20:22 All Systems PM: A 10-system review of systems was performed and is negative for pertinent findings except as documented above in the HPI. Review of systems: Review of systems from her June 2018 [facility] hospitalization were reviewed and revised as below. Gen.: Her weight has minimally changed from 106.594 kg on 07/16/2018 to present weight of 105.4 kg. Cardiovascular: She has history of hypertension and SVT. She has chronic atrial fibrillation and is on Eliquis. She reports a superficial vein thrombosis remotely following surgery. She denies DVT pulmonary embolus or heart failure. Respiratory: As per history of present illness GI: She had abdominal hernia repair with mesh placement remotely. Abdominal/pelvic CT 07/13/2018 showed 11.7 x 14.7 x 8.5 cm mixed density lesion along the undersurface of the ventral hernia repair mesh most likely representing hematoma. She was asymptomatic from this. She denies disorders of her liver gallbladder or exocrine pancreas : She denies hematuria dysuria or kidney stones Neurologic: She denies large distribution strokes or seizures. She reports being told she has bilateral lower legs neuropathy but is uncertain of the etiology. Endocrine: She was told she had borderline diabetes in the past. She denies thyroid disease or hyperlipidemia Hematology/oncology: She was diagnosed with non-Hodgkin's lymphoma approximately 2015. She follows with an oncologist in [place]. She has anemia and thrombocytopenia. She denies other internal malignancies. Psychiatric: She has anxiety. She denies depression but is presently on Zoloft. She denies other mental health diagnosis. Muscle skeletal: She has DJD. She has had right foot surgery 3 with history of ankle fusion. She has had right rotator cuff surgery, left finger surgery, and left total knee replacement. She denies known gout or other bone joint or muscle disorders. - Constitutional Vitals: Temp Pulse Resp BP Pulse Ox 97.7 F 64 17 146/63 94 10/03/18 10:20 10/03/18 10:20 10/03/18 10:20 10/03/18 10:20 10/03/18 10:20 Exam: Gen.: She is a well-developed overweight female sitting in a chair at bedside who appears in no acute distress. HEENT: Head is atraumatic and normocephalic. Eyes: EOMI. There is no scleral icterus. Mouth: Mucosa is moist. Neck: Supple and nontender. There is no thyromegaly or adenopathy noted. Heart: Irregularly irregular without murmurs or gallops. Lungs: No wheezes or crackles are heard. Abdomen: Soft and nontender. No masses or guarding are noted. Extremities: There is no cyanosis or clubbing noted. She has 1+ edema of the dorsum of the feet and lower legs bilaterally. Dorsalis pedis and posterior tibial pulses are nonpalpable. She has mild DJD changes of her hands. Neurologic: Mental status: She is talkative and a good historian. Cranial nerves: Smile is symmetric. Forehead wrinkles bilaterally. Tongue protrudes midline. EOMI. Motor: There is no pronator drift. Cerebellar: Finger to nose is intact bilaterally. Skin: Warm and dry Internal Med - H&P Results - Labs CBC & Chem 7: 10/02/18 20:47 10/02/18 20:47 Labs: Short CBC 10/02/18 Range/Units 20:47 WBC 15.8 H (4.3-11.1) K/mcL Hgb 8.0 L (11.5-15.4) g/dL Hct 25.9 L (35.3-44.9) % Plt Count 63 L (140-400) K/mcL Neutrophils # 7.6 (1.6-8.9) K/mcL BMP 10/02/18 20:47 Sodium 136 Potassium 4.3 Chloride 95 L Carbon Dioxide 36 H BUN 20 Creatinine 1.11 Glucose 130 H Calcium 8.7 Cardiac Enzymes 10/02/18 Range/Units 20:47 Troponin I < 0.03 (< 0.04) ng/mL - Impressions ITS Impressions Chest X-Ray 10/02/18 20:32 IMPRESSION: Mild cardiomegaly and mild pulmonary vascular congestion. Mild bibasilar pleural and parenchymal disease likely represents edema and or atelectasis with trace pleural fluid. Underlying basilar pneumonia not excluded. D/ / Bhargav Kaplan MD / Bhargav Kaplan MD Interpreting Provider: Bhargav Kaplan MD
[2018-10-03] MEDS ORDERED: SODIUM CHLORIDE 0.9% IVPB ONE ×2 (16:30→18:00)
[2018-10-03] MEDS ORDERED: IRON DEXTRAN COMPLEX IVPB ONE ×2 (16:30→18:00)
--- NOTE | 2018-10-03 16:34 | Electrocardiograph Report ---
[place] [id number] Test Date: 2018-10-02 Pat Name: Pam Veronica Department: EDP-12 Room: [facility] Gender: F Hand Winder: : [id number] Requested By: José Miguel Bauer Order Number: [id number] Reading MD: Prasad Randhawa Measurements Intervals [place] Rate: 78 P: -39 IN: 150 QRS: -62 QRSD: 138 T: 68 QT: 407 QTc: 464 Interpretive Statements Sinus rhythm Atrial premature complex RBBB and LAFB Electronically Signed On 10-03-2018 16:32:33 EDT by Prasad Randhawa
[2018-10-03 20:10] LABS: Acinetobacter baumannii by PCR Not Detected (Not Detect); Enterobacter cloacae Cmplx PCR Not Detected (Not Detect); Enterococcus by PCR Not Detected (Not Detect); Escherichia coli by PCR Not Detected (Not Detect); Klebsiella oxytoca by PCR Not Detected (Not Detect); Klebsiella pneumoniae by PCR DETECTED (Not Detect); Staphylococcus aureus by PCR Not Detected (Not Detect); Staphylococcus by PCR Not Detected (Not Detect); Streptococcus agalactiae(B)PCR Not Detected (Not Detect); Streptococcus by PCR Not Detected (Not Detect); Streptococcus pneumoniae PCR Not Detected (Not Detect); Streptococcus pyogenes (A) PCR Not Detected (Not Detect); blaKPC Carbapenem-Resist Gene Not Detected (Not Detect); mecA Methicillin-Resist Gene Not Detected (Not Detect); vanA/B Vancomycin-Resist Genes Not Detected (Not Detect)
[2018-10-03 20:11] LABS: Candida albicans by PCR Not Detected (Not Detect); Candida glabrata by PCR Not Detected (Not Detect); Candida krusei by PCR Not Detected (Not Detect); Candida parapsilosis by PCR Not Detected (Not Detect); Candida tropicalis by PCR Not Detected (Not Detect); Proteus by PCR Not Detected (Not Detect); Pseudomonas aeruginosa by PCR Not Detected (Not Detect); Serratia marcescens by PCR Not Detected (Not Detect)
[2018-10-03] MEDS ORDERED: levoFLOXacin 750 MG/150 ML 750 MG/150 ML BAG IVPB ONE (20:15)
[2018-10-03] MEDS: Gabapentin 300 MG CAPSULE PO SCH (20:38)
[2018-10-03] MEDS: Lactobacillus 1 EACH CAP.SPRINK PO SCH (20:38)
[2018-10-03] MEDS ORDERED: Azithromycin 500 MG in D5% in Water 250 ML IVPB SCH (22:00)
[2018-10-03] MEDS: cefTRIAXone 2,000 MG in 0.9 % Sodium Chloride Mini Bag 100 ML IVPB SCH (22:02)
[2018-10-04] MEDS: *HR* HYDROcodone/Acet 10/325 mg TABLET PO SCH ×5 (00:18→23:57)
[2018-10-04] MEDS: Ipratropium/Albuterol Neb 3 ML IH SCH ×4 (04:15→21:18)
[2018-10-04] MEDS ORDERED: *HR* Enoxaparin 40 MG/0.4 ML SYRINGE SQ SCH (06:00)
[2018-10-04 07:03] LABS: Hematocrit 25.7 % (35.3-44.9); Mean Corpuscular HGB Conc 31.1 g/dL (31.6-35.5); Mean Corpuscular Hemoglobin 28.6 pg (28.0-33.3); Mean Corpuscular Volume 91.8 fL (83.0-100.0); Mean Platelet Volume 13.2 fL (9.4-12.4); White Blood Count 14.5 K/mcL (4.3-11.1)
[2018-10-04 07:42] LABS: BUN/Creatinine Ratio 24 (6-26); Blood Urea Nitrogen 24 mg/dL (8-23); Calcium 8.6 mg/dL (8.6-10.3); Carbon Dioxide 34 mEq/L (23-29); Chloride 100 mEq/L (98-107); Glucose 141 mg/dL (70-105); Osmolality,Calculated 296 (280-300); Sodium 140 mEq/L (136-145); eGFR For African Americans > 60 (> 60); eGFR For Non-African Americans 54 (> 60)
[2018-10-04 07:52] LABS: Platelet Count 60 K/mcL (140-400)
[2018-10-04 08:17] LABS: Lymphocytes # 1.5 K/mcL (0.6-4.6); Monocytes # 3.8 K/mcL (0.0-1.3); Neutrophils # 9.3 K/mcL (1.6-8.9); Platelet Estimate Decreased (Normal)
[2018-10-04 09:14] LABS: Estimated Average Glucose 123 mg/dl
[2018-10-04] MEDS: Gabapentin 300 MG CAPSULE PO SCH ×3 (09:17→20:47)
[2018-10-04] MEDS: Lactobacillus 1 EACH CAP.SPRINK PO SCH ×2 (09:17→20:47)
--- NOTE | 2018-10-04 11:09 | Internal Med Progress Note ---
Date of Encounter: 10/04/18 Time of Encounter: 11:00 - Assessment and plan (1) Acute exacerbation of chronic obstructive airways disease Current Visit: Yes Status: Acute Assessment and plan: October 04. Blood PCR shows Klebsiella pneumonia. A blood culture shows gram- negative nanci growth consistent with this. Sensitivity report is pending. Continue Rocephin but discontinue azithromycin. She received a loading dose of IV Levaquin last evening. This will be started on daily basis tomorrow. Continue lactobacillus. (2) DM type 2 (diabetes mellitus, type 2) Current Visit: Yes Status: Chronic Assessment and plan: October 04. Hemoglobin A1c acceptable at 5.9%. Qualifiers: Diabetes mellitus halfway insulin use: without halfway use Diabetes mellitus complication status: with kidney complications Diabetes mellitus complication detail: with chronic kidney disease Chronic kidney disease stage: stage 3 (moderate) Qualified Code(s): E11.22 - Type 2 diabetes mellitus with diabetic chronic kidney disease; N18.3 - Chronic kidney disease, stage 3 (moderate) (3) CKD (chronic kidney disease) stage 3, GFR 30-59 ml/min Current Visit: Yes Status: Chronic Assessment and plan: October 04. Creatinine improved to 0.98 with estimated GFR 54. Continue to monitor. (4) Hypertension Current Visit: No Status: Chronic Assessment and plan: October 04. Continue Betapace Qualifiers: Hypertension type: essential hypertension Qualified Code(s): I10 - Essential (primary) hypertension (5) Atrial fibrillation Current Visit: No Status: Chronic Assessment and plan: October 04. Continue Eliquis, diltiazem, and Betapace. Qualifiers: Atrial fibrillation type: chronic Qualified Code(s): I48.2 - Chronic atrial fibrillation (6) Non Hodgkin's lymphoma Current Visit: No Status: Chronic Assessment and plan: October 04. As per oncologist. Qualifiers: Non-Hodgkin lymphoma type: unspecified type Lymphoma site: unspecified region Qualified Code(s): C85.90 - Non-Hodgkin lymphoma, unspecified, unspecified site (7) Anemia Current Visit: Yes Status: Chronic Assessment and plan: October 04. She received iron dextran infusion yesterday. Continue to monitor CBC. Qualifiers: Anemia type: unspecified type Qualified Code(s): D64.9 - Anemia, unspecified (8) Thrombocytopenia Current Visit: No Status: Chronic Assessment and plan: October 04. Continue to monitor platelet count periodically. - Subjective Interval history: October 04. She has no new complaints. - Constitutional Vitals: Temp Pulse Resp BP Pulse Ox 97.6 F 72 14 156/72 95 10/04/18 10:27 10/04/18 10:27 10/04/18 10:37 10/04/18 10:27 10/04/18 10:37 Exam: She is sitting in a recliner chair at bedside with her feet elevated. Extremities show trace to 1+ edema of the lower anterior shins bilaterally. Her affect is bright and cheerful. I reviewed her medications and lab results. Internal Medicine: Result - Labs CBC & Chem 7: 10/04/18 06:25 10/04/18 06:25 Labs: Short CBC 10/04/18 Range/Units 06:25 WBC 14.5 H (4.3-11.1) K/mcL Hgb 8.0 L (11.5-15.4) g/dL Hct 25.7 L (35.3-44.9) % Plt Count 60 L (140-400) K/mcL Neutrophils # 9.3 H (1.6-8.9) K/mcL BMP 10/04/18 06:25 Sodium 140 Potassium 4.0 Chloride 100 Carbon Dioxide 34 H BUN 24 H Creatinine 0.98 Glucose 141 H Calcium 8.6 - ABG Interpretation ABG results: PT/INR, D-dimer PT 21.9 Seconds (9.4-12.1) H 10/02/18 20:47 Consult Discharge Plan - Plan Referrals: Reuben Leger MD [Primary Care Provider] - 1 week
[2018-10-04] MEDS: Bumetanide 1 MG TABLET PO SCH (12:46)
[2018-10-04 13:40] LABS: Bilirubin,Urine Negative (Negative); Blood,Urine Small (Negative); Clarity,Urine Clear (Clear); Color,Urine Yellow (Yellow); Glucose,Urine (UA) Normal (Normal); Ketones,Urine Negative (Negative); Leukocyte Esterase,Urine Negative (Negative); Nitrite,Urine Negative (Negative); Protein,Urine 30 mg/dL (Neg-Trace); Specific Gravity,Urine 1.015 (1.010-1.025); Urobilinogen,Urine Normal (Normal)
[2018-10-04 13:52] LABS: Bacteria,Urine Few per hpf (None-Few); Squamous Epithelial Cell,Urine Few per lpf (None-Few)
[2018-10-04] MEDS: Apixaban 5 MG TABLET PO SCH (20:47)
[2018-10-04] MEDS ORDERED: PROOMEGA PO SCH (21:00)
[2018-10-04] MEDS: cefTRIAXone 2,000 MG in 0.9 % Sodium Chloride Mini Bag 100 ML IVPB SCH (22:34)
[2018-10-04] MEDS: PROOMEGA PO SCH (23:54)
[2018-10-05] MEDS: Ipratropium/Albuterol Neb 3 ML IH SCH ×4 (03:22→21:51)
[2018-10-05 05:41] LABS: Hematocrit 26.2 % (35.3-44.9); Hemoglobin 8.3 g/dL (11.5-15.4); Lymphocytes # 1.7 K/mcL (0.6-4.6); Mean Corpuscular HGB Conc 31.7 g/dL (31.6-35.5); Mean Corpuscular Hemoglobin 28.7 pg (28.0-33.3); Mean Corpuscular Volume 90.7 fL (83.0-100.0); Mean Platelet Volume 11.3 fL (9.4-12.4); Nucleated Red Blood Cells 0.1 /100 WBC (0); Red Blood Count 2.89 M/mcL (3.82-4.97); Red Cell Distribution Width 14.2 % (11.5-14.5); White Blood Count 13.9 K/mcL (4.3-11.1)
[2018-10-05] MEDS: *HR* HYDROcodone/Acet 10/325 mg TABLET PO SCH ×3 (05:44→18:15)
[2018-10-05 06:25] LABS: Platelet Count 73 K/mcL (140-400)
[2018-10-05 06:34] LABS: BUN/Creatinine Ratio 22 (6-26); Blood Urea Nitrogen 21 mg/dL (8-23); Calcium 8.8 mg/dL (8.6-10.3); Carbon Dioxide 33 mEq/L (23-29); Chloride 100 mEq/L (98-107); Glucose 144 mg/dL (70-105); Osmolality,Calculated 302 (280-300); Potassium 3.8 mEq/L (3.5-5.1); Sodium 143 mEq/L (136-145); eGFR For African Americans > 60 (> 60); eGFR For Non-African Americans 55 (> 60)
[2018-10-05 07:38] LABS: Eosinophils # 0.3 K/mcL (0.0-0.6); Platelet Estimate Decreased (Normal)
[2018-10-05 07:39] LABS: Microcytosis Present (Not Present)
[2018-10-05] MEDS ORDERED: levoFLOXacin 500 MG/100 ML 500 MG/100 ML BAG IVPB SCH (09:00)
[2018-10-05] MEDS ORDERED: VISION SHIELD PO SCH (09:00)
[2018-10-05] MEDS: Bumetanide 1 MG TABLET PO SCH (09:39)
[2018-10-05] MEDS: Lactobacillus 1 EACH CAP.SPRINK PO SCH ×2 (09:39→22:15)
[2018-10-05] MEDS: Gabapentin 300 MG CAPSULE PO SCH ×3 (09:39→22:16)
[2018-10-05] MEDS: Apixaban 5 MG TABLET PO SCH ×2 (09:39→22:15)
[2018-10-05] MEDS: VISION SHIELD PO SCH (09:49)
[2018-10-05] MEDS: PROOMEGA PO SCH ×3 (09:49→22:16)
--- NOTE | 2018-10-05 14:07 | Internal Med Progress Note ---
Date of Encounter: 10/05/18 Time of Encounter: 13:59 - Assessment and plan (1) Bacteremia due to Klebsiella pneumoniae Current Visit: Yes Status: Acute Assessment and plan: October 05. WBC has decreased to 13.9 without left shift present. Continue IV Rocephin with lactobacillus. (2) Acute exacerbation of chronic obstructive airways disease Current Visit: Yes Status: Acute Assessment and plan: October 04. Blood PCR shows Klebsiella pneumonia. A blood culture shows gram- negative nanci growth consistent with this. Sensitivity report is pending. Continue Rocephin but discontinue azithromycin. She received a loading dose of IV Levaquin last evening. This will be started on daily basis tomorrow. Continue lactobacillus. October 05. Sensitivity report back on Klebsiella. Continue IV Rocephin with lactobacillus. (3) DM type 2 (diabetes mellitus, type 2) Current Visit: Yes Status: Chronic Assessment and plan: October 04. Hemoglobin A1c acceptable at 5.9%. Qualifiers: Diabetes mellitus shelter insulin use: without intermediate project manager use Diabetes mellitus complication status: with kidney complications Diabetes mellitus complication detail: with chronic kidney disease Chronic kidney disease stage: stage 3 (moderate) Qualified Code(s): E11.22 - Type 2 diabetes mellitus with diabetic chronic kidney disease; N18.3 - Chronic kidney disease, stage 3 (moderate) (4) CKD (chronic kidney disease) stage 3, GFR 30-59 ml/min Current Visit: Yes Status: Chronic Assessment and plan: October 04. Creatinine improved to 0.98 with estimated GFR 54. Continue to monitor. (5) Hypertension Current Visit: No Status: Chronic Assessment and plan: October 04. Continue Betapace Qualifiers: Hypertension type: essential hypertension Qualified Code(s): I10 - Esse ntial (primary) hypertension (6) Atrial fibrillation Current Visit: No Status: Chronic Assessment and plan: October 04. Continue Eliquis, diltiazem, and Betapace. Qualifiers: Atrial fibrillation type: chronic Qualified Code(s): I48.2 - Chronic atrial fibrillation (7) Non Hodgkin's lymphoma Current Visit: No Status: Chronic Assessment and plan: October 04. As per oncologist. Qualifiers: Non-Hodgkin lymphoma type: unspecified type Lymphoma site: unspecified region Qualified Code(s): C85.90 - Non-Hodgkin lymphoma, unspecified, unspecified site (8) Anemia Current Visit: Yes Status: Chronic Assessment and plan: October 04. She received iron dextran infusion yesterday. Continue to monitor CBC. October 05. Hemoglobin slightly higher at 8.3. Continue to monitor periodically. Qualifiers: Anemia type: unspecified type Qualified Code(s): D64.9 - Anemia, unspecified (9) Thrombocytopenia Current Visit: No Status: Chronic Assessment and plan: October 04. Continue to monitor platelet count periodically. - Subjective Interval history: October 04. She has no new complaints. October 05. She has no new complaints except feels weaker than yesterday. - Constitutional Vitals: Temp Pulse Resp BP Pulse Ox 97.8 F 145 16 110/66 94 10/05/18 06:32 10/05/18 06:32 10/05/18 10:50 10/05/18 06:32 10/05/18 10:50 Exam: She is sitting in a chair at bedside resting comfortably. Her affect is overall cheerful. I reviewed her medications and lab results. Internal Medicine: Result - Labs CBC & Chem 7: 10/05/18 05:34 10/05/18 05:34 Labs: Short CBC 10/05/18 Range/Units 05:34 WBC 13.9 H (4.3-11.1) K/mcL Hgb 8.3 L (11.5-15.4) g/dL Hct 26.2 L (35.3-44.9) % Plt Count 73 L (140-400) K/mcL Neutrophils # 7.0 (1.6-8.9) K/mcL BMP 10/05/18 05:34 Sodium 143 Potassium 3.8 Chloride 100 Carbon Dioxide 33 H BUN 21 Creatinine 0.96 Glucose 144 H Calcium 8.8 - ABG Interpretation ABG results: PT/INR, D-dimer PT 21.9 Seconds (9.4-12.1) H 10/02/18 20:47 Consult Discharge Plan - Plan Referrals: Reuben Leger MD [Primary Care Provider] - 1 week
[2018-10-05] MEDS ORDERED: Verapamil 5 MG/2 ML VIAL IVP ONE ×3 (14:46→17:43)
[2018-10-05] MEDS ORDERED: *HR* Digoxin 0.5 MG/2 ML AMPUL IVP ONE ×2 (14:46→17:42)
[2018-10-05] MEDS ORDERED: *HR* Propranolol 1 MG/ML VIAL IVP ONE (17:01)
[2018-10-05] MEDS: cefTRIAXone 2,000 MG in 0.9 % Sodium Chloride Mini Bag 100 ML IVPB SCH (22:17)
[2018-10-06] MEDS: *HR* HYDROcodone/Acet 10/325 mg TABLET PO SCH ×5 (00:32→23:51)
[2018-10-06] MEDS: Ipratropium/Albuterol Neb 3 ML IH SCH (03:50)
[2018-10-06] MEDS: Bumetanide 1 MG TABLET PO SCH (08:58)
[2018-10-06] MEDS: Lactobacillus 1 EACH CAP.SPRINK PO SCH ×2 (08:58→21:19)
[2018-10-06] MEDS: Apixaban 5 MG TABLET PO SCH ×2 (08:58→21:19)
[2018-10-06] MEDS: Gabapentin 300 MG CAPSULE PO SCH ×3 (08:58→21:18)
[2018-10-06] MEDS: VISION SHIELD PO SCH (09:17)
[2018-10-06] MEDS: PROOMEGA PO SCH ×2 (09:17→21:23)
[2018-10-06] MEDS: Albuterol 2.5 MG/3 ML NEBULIZER IH PRN ×2 (09:23→21:53)
[2018-10-06] MEDS: Diltiazem CD (24hr) 180 MG CAPSULE PO SCH (11:07)
--- NOTE | 2018-10-06 18:33 | Internal Med Progress Note ---
Date of Encounter: 10/06/18 Time of Encounter: 18:20 - Assessment and plan (1) Bacteremia due to Klebsiella pneumoniae Current Visit: Yes Status: Acute Assessment and plan: October 05. WBC has decreased to 13.9 without left shift present. Continue IV Rocephin with lactobacillus. October 06. Continue IV Rocephin with lactobacillus. Recheck labs in a.m. (2) Acute exacerbation of chronic obstructive airways disease Current Visit: Yes Status: Acute Assessment and plan: October 04. Blood PCR shows Klebsiella pneumonia. A blood culture shows gram- negative nanci growth consistent with this. Sensitivity report is pending. Continue Rocephin but discontinue azithromycin. She received a loading dose of IV Levaquin last evening. This will be started on daily basis tomorrow. Continue lactobacillus. October 05. Sensitivity report back on Klebsiella. Continue IV Rocephin with lactobacillus. (3) DM type 2 (diabetes mellitus, type 2) Current Visit: Yes Status: Chronic Assessment and plan: October 04. Hemoglobin A1c acceptable at 5.9%. Qualifiers: Diabetes mellitus terminal makeup operator insulin use: without terminal makeup operator use Diabetes mellitus complication status: with kidney complications Diabetes mellitus complication detail: with chronic kidney disease Chronic kidney disease stage: stage 3 (moderate) Qualified Code(s): E11.22 - Type 2 diabetes mellitus with diabetic chronic kidney disease; N18.3 - Chronic kidney disease, stage 3 (moderate) (4) CKD (chronic kidney disease) stage 3, GFR 30-59 ml/min Current Visit: Yes Status: Chronic Assessment and plan: October 04. Creatinine improved to 0.98 with estimated GFR 54. Continue to monitor. October 06. Recheck labs in a.m. (5) Hypertension Current Visit: No Status: Chronic Assessment and plan: October 04. Continue Betapace October 06. Continue Betapace and diltiazem. Qualifiers: Hypertension type: essential hypertension Qualified Code(s): I10 - Essential (primary) hypertension (6) Atrial fibrillation Current Visit: No Status: Chronic Assessment and plan: October 04. Continue Eliquis, diltiazem, and Betapace. October 06. AF with RVR yesterday converted to NSR with medication. Continue Betapace, diltiazem, and Eliquis. Qualifiers: Atrial fibrillation type: chronic Qualified Code(s): I48.2 - Chronic atrial fibrillation (7) Non Hodgkin's lymphoma Current Visit: No Status: Chronic Assessment and plan: October 04. As per oncologist. Qualifiers: Non-Hodgkin lymphoma type: unspecified type Lymphoma site: unspecified region Qualified Code(s): C85.90 - Non-Hodgkin lymphoma, unspecified, unspecified site (8) Anemia Current Visit: Yes Status: Chronic Assessment and plan: October 04. She received iron dextran infusion yesterday. Continue to monitor CBC. October 05. Hemoglobin slightly higher at 8.3. Continue to monitor periodically. Qualifiers: Anemia type: unspecified type Qualified Code(s): D64.9 - Anemia, unspecified (9) Thrombocytopenia Current Visit: No Status: Chronic Assessment and plan: October 04. Continue to monitor platelet count periodically. - Subjective Interval history: October 04. She has no new complaints. October 05. She has no new complaints except feels weaker than yesterday. October 06. She has no new complaints. - Constitutional Vitals: Temp Pulse Resp BP Pulse Ox 97.6 F 66 18 133/85 96 10/06/18 18:00 10/06/18 18:00 10/06/18 18:00 10/06/18 18:00 10/06/18 18:00 Exam: She is sitting a chair at bedside resting operably. Her affect is bright and cheerful. There is 1+ edema bilaterally in the lower anterior shins. I reviewed her medications and lab results. Internal Medicine: Result - Labs CBC & Chem 7: 10/05/18 05:34 10/05/18 05:34 - ABG Interpretation ABG results: PT/INR, D-dimer PT 21.9 Seconds (9.4-12.1) H 10/02/18 20:47 Consult Discharge Plan - Plan Referrals: Reuben Leger MD [Primary Care Provider] - 1 week
[2018-10-06] MEDS: cefTRIAXone 2,000 MG in 0.9 % Sodium Chloride Mini Bag 100 ML IVPB SCH (21:23)
[2018-10-07] MEDS: Albuterol 2.5 MG/3 ML NEBULIZER IH PRN ×2 (04:21→08:54)
[2018-10-07 05:52] VITALS: BP 110/54
[2018-10-07] MEDS: *HR* HYDROcodone/Acet 10/325 mg TABLET PO SCH ×2 (05:52→12:10)
[2018-10-07 06:54] LABS: Basophils % 0.2 %; Eosinophils # 0.1 K/mcL (0.0-0.6); Eosinophils % 0.6 %; Hematocrit 25.1 % (35.3-44.9); Hemoglobin 7.6 g/dL (11.5-15.4); Immature Granulocytes % 4.3 % (0-4); Lymphocytes # 1.7 K/mcL (0.6-4.6); Lymphocytes % 16.1 %; Mean Corpuscular HGB Conc 30.3 g/dL (31.6-35.5); Mean Corpuscular Hemoglobin 28.3 pg (28.0-33.3); Mean Corpuscular Volume 93.3 fL (83.0-100.0); Mean Platelet Volume 13.1 fL (9.4-12.4); Monocytes # 3.9 K/mcL (0.0-1.3); Monocytes % 36.4 %; Neutrophils # 4.5 K/mcL (1.6-8.9); Nucleated Red Blood Cells 0.4 /100 WBC (0); Red Blood Count 2.69 M/mcL (3.82-4.97); Red Cell Distribution Width 14.7 % (11.5-14.5); Segmented Neutrophils % 42.4 %; White Blood Count 10.6 K/mcL (4.3-11.1)
[2018-10-07 06:58] LABS: Platelet Count 62 K/mcL (140-400)
[2018-10-07 07:10] LABS: BUN/Creatinine Ratio 19 (6-26); Blood Urea Nitrogen 17 mg/dL (8-23); Calcium 8.6 mg/dL (8.6-10.3); Carbon Dioxide 33 mEq/L (23-29); Chloride 100 mEq/L (98-107); Glucose 108 mg/dL (70-105); Osmolality,Calculated 296 (280-300); Potassium 3.7 mEq/L (3.5-5.1); Sodium 142 mEq/L (136-145); eGFR For African Americans > 60 (> 60); eGFR For Non-African Americans 59 (> 60)
[2018-10-07 07:23] LABS: Anisocytosis 1+ (Not Present); Hypochromasia Present (Not Present); Platelet Estimate Decreased (Normal)
[2018-10-07] MEDS: Gabapentin 300 MG CAPSULE PO SCH (08:29)
[2018-10-07] MEDS: Bumetanide 1 MG TABLET PO SCH (08:29)
[2018-10-07] MEDS: Diltiazem CD (24hr) 180 MG CAPSULE PO SCH (08:30)
[2018-10-07] MEDS: Apixaban 5 MG TABLET PO SCH (08:30)
[2018-10-07] MEDS: Lactobacillus 1 EACH CAP.SPRINK PO SCH (08:30)
[2018-10-07] MEDS: PROOMEGA PO SCH (08:31)
[2018-10-07] MEDS: VISION SHIELD PO SCH (08:31)
--- NOTE | 2018-10-07 10:05 | Discharge Summary ---
Orders not resulted at time of discharge: Pending orders 10/02/18 20:47 Culture,Blood [] Stat Date of Encounter: 10/07/18 Time of Encounter: 09:45 - Discharge Diagnosis (1) Bacteremia due to Klebsiella pneumoniae Priority: Primary Status: Acute (2) Acute exacerbation of chronic obstructive airways disease Priority: Secondary Status: Acute (3) DM type 2 (diabetes mellitus, type 2) Priority: Secondary Status: Chronic Qualifiers: Diabetes mellitus long term care social worker insulin use: without long term care social worker use Diabetes mellitus complication status: with kidney complications Diabetes mellitus complication detail: with chronic kidney disease Chronic kidney disease stage: stage 3 (moderate) Qualified Code(s): E11.22 - Type 2 diabetes mellitus with diabetic chronic kidney disease; N18.3 - Chronic kidney disease, stage 3 (moderate) (4) CKD (chronic kidney disease) stage 3, GFR 30-59 ml/min Priority: Secondary Status: Chronic (5) Hypertension Priority: Secondary Status: Chronic Qualifiers: Hypertension type: essential hypertension Qualified Code(s): I10 - Essential (primary) hypertension (6) Atrial fibrillation Priority: Secondary Status: Chronic Qualifiers: Atrial fibrillation type: paroxysmal Qualified Code(s): I48.0 - Paroxysmal atrial fibrillation (7) Non Hodgkin's lymphoma Priority: Secondary Status: Chronic Qualifiers: Non-Hodgkin lymphoma type: unspecified type Lymphoma site: unspecified region Qualified Code(s): C85.90 - Non-Hodgkin lymphoma, unspecified, unspecified site (8) Anemia Priority: Secondary Status: Chronic Qualifiers: Anemia type: unspecified type Qualified Code(s): D64.9 - Anemia, unspecified (9) Thrombocytopenia Priority: Secondary Status: Chronic Hospital course: Ms. Veronica is a 83 year old female who came to emergency room complaining of increased dyspnea onset afternoon of 09/30/2018. She had increasing weakness over the next 2 days. She reports minimal cough with occasional greenish sputum production. She denies vomiting diarrhea or significant pain. She was evaluated in emergency room and was felt to have exacerbation of COPD. She was admitted to [facility] floor for ongoing care needs. Initial orders were written by the emergency room physician. I saw her on October 03 and performed a history and physical. She was started empirically on Rocephin and Zithromax with lactobacillus. PCR and 02/21 blood cultures returned showing Klebsiella pneumonia. Levaquin was given pending final culture sensitivity report. The organism was sensitive to Rocephin so Levaquin was discontinued. She continue Rocephin through the course of acute-care stay and will continue in swing bed. Hemoglobin A1c returned acceptable at 5.9%. On October 07 arrangements were complete for her to be discharged to swing bed for ongoing IV antibiotics. PT and OT evaluation will be ordered for functional improvement prior to discharge home. - Time Spent with Patient Total time spent providing and/or coordinating discharge services: - Discharge Medications Prescriptions: New cefTRIAXone [Rocephin] 2,000 mg IVPB Q24H vial Lactobacillus [Culturelle] 1 each PO BID cap.sprink GuaiFENesin ER [Mucinex] 1,200 mg PO BID tbbp.12hr Bumetanide [Bumex] 1 mg PO DAILY tablet Albuterol Neb [Proventil Neb] 2.5 mg IH Q2H PRN inhsol PRN Reason: Shortness Of Breath/Wheezing Continued Sotalol [Betapace] 40 mg PO QPM Sertraline [Zoloft] 25 mg PO DAILY Sotalol [Betapace] 80 mg PO QAM Omeprazole [PriLOSEC] 40 mg PO DAILY Gabapentin [Neurontin] 600 mg PO TID Apixaban [Eliquis] 5 mg PO BID Albuterol Sulfate [Proair Hfa] 1 puff IH QID PRN PRN Reason: Wheezing Albuterol Neb [Proventil Neb] 2.5 mg IH Q6HR Gluc/Noam-MSM#1/C/Michael/Apolinar/Bor [Osteo Bi-Flex Caplet] 1 each PO DAILY Biotin 1 mg PO DAILY Potassium Chloride 10 meq PO BIDWM tab.er.prt Fluticasone/Vilanterol [Breo Ellipta 100-25 Mcg INH] 1 each IH DAILY [place]-3 Fatty Acids [Fish Oil] 300 mg PO BID Diltiazem HCl [Tiazac] 180 mg PO DAILY Non-Formulary Medication 2 cap PO DAILY Non-Formulary Medication 2 cap PO BID Magnesium Oxide [Magnesium] 250 mg PO DAILY Cholecalciferol (Vitamin D3) [Vitamin D3] 400 unit PO DAILY Discontinued Lidocaine Patch [Lidoderm 5% patch] 1 each TP DAILY Furosemide [Lasix] 20 mg PO BID Ferrous Sulfate [Iron] 325 mg PO DAILY No Action HYDROcodone/Acet 10/325 mg [[place] 10-325 mg] 1 tab PO Q6HR PRN PRN Reason: Pain Home Medications: Albuterol Neb [Proventil Neb] 2.5 mg IH Q6HR 07/12/18 [History] Albuterol Sulfate [Proair Hfa] 1 puff IH QID PRN 07/12/18 [History] Apixaban [Eliquis] 5 mg PO BID 07/12/18 [History] Biotin 1 mg PO DAILY 07/12/18 [History] Gabapentin [Neurontin] 600 mg PO TID 07/12/18 [History] Gluc/Noam-MSM#1/C/Michael/Apolinar/Bor [Osteo Bi-Flex Caplet] 1 each PO DAILY 07/12/18 [History] Omeprazole [PriLOSEC] 40 mg PO DAILY 07/12/18 [History] Sertraline [Zoloft] 25 mg PO DAILY 07/12/18 [History] Sotalol [Betapace] 40 mg PO QPM 07/12/18 [History] Sotalol [Betapace] 80 mg PO QAM 07/12/18 [History] Potassium Chloride 10 meq PO BIDWM tab.er.prt 07/16/18 [Rx] Diltiazem HCl [Tiazac] 180 mg PO DAILY 10/02/18 [History] Fluticasone/Vilanterol [Breo Ellipta 100-25 Mcg INH] 1 each IH DAILY 10/02/18 [History] HYDROcodone/Acet 10/325 mg [[place] 10-325 mg] 1 tab PO Q6HR PRN 10/02/18 [History] [place]-3 Fatty Acids [Fish Oil] 300 mg PO BID 10/02/18 [History] Cholecalciferol (Vitamin D3) [Vitamin D3] 400 unit PO DAILY 10/03/18 [History] Magnesium Oxide [Magnesium] 250 mg PO DAILY 10/03/18 [History] Non-Formulary Medication 2 cap PO BID 10/03/18 [History] Non-Formulary Medication 2 cap PO DAILY 10/03/18 [History] Albuterol Neb [Proventil Neb] 2.5 mg IH Q2H PRN inhsol 10/07/18 [Rx] Bumetanide [Bumex] 1 mg PO DAILY tablet 10/07/18 [Rx] GuaiFENesin ER [Mucinex] 1,200 mg PO BID tbbp.12hr 10/07/18 [Rx] Lactobacillus [Culturelle] 1 each PO BID cap.sprink 10/07/18 [Rx] cefTRIAXone [Rocephin] 2,000 mg IVPB Q24H vial 10/07/18 [Rx] Allergies/Adverse Reactions: Allergy/AdvReac Type Severity Reaction Status Date / Time tramadol [From Ultram] AdvReac Itching Verified 10/02/18 20:22 Date of admission: 10/04/18 10:48 Primary care physician: Reuben Leger MD Consults: 10/02/18 23:44 Consult to [employer] [facility] [CONS] Routine Reason for SW Consult: Pt home health ended a couple weeks ago. Pt and pt's daughter wanted to see if she would qualify for home health services again. - Constitutional Vitals: Temp Pulse Resp BP Pulse Ox 97.7 F 68 18 110/54 94 10/07/18 05:51 10/07/18 05:51 10/07/18 08:56 10/07/18 05:51 10/07/18 08:56 - Patient Status Disposition: Transfer Hospital Swing Bed Condition: Good - Discharge Instructions - Diet and Activity Activity: wear oxygen at all times Diet: low fat, low cholesterol, low salt diet
== END 2018-10-07 13:09 | disposition other institution (70) | DRG 191 ==
LOC: EMEROOPIK 20:15 → INPPIK 20:15
PROVIDERS: ADMIT Internal Medicine; ATTEND Internal Medicine

== ENCOUNTER 2018-10-07 13:53 | Inpatient (IN) ==
[2018-10-07] MEDS: Albuterol 2.5 MG/3 ML NEBULIZER IH SCH ×2 (15:30→21:45)
[2018-10-07] MEDS: Gabapentin 300 MG CAPSULE PO SCH ×2 (16:09→20:15)
[2018-10-07] MEDS: *HR* HYDROcodone/Acet 10/325 mg TABLET PO PRN (18:42)
[2018-10-07] MEDS: Lactobacillus 1 EACH CAP.SPRINK PO SCH (20:14)
[2018-10-07] MEDS: Apixaban 5 MG TABLET PO SCH (20:15)
[2018-10-07] MEDS: FISH OIL 300 MG PO SCH (20:15)
[2018-10-07] MEDS: cefTRIAXone 2,000 MG in 0.9 % Sodium Chloride Mini Bag 100 ML IVPB SCH (20:44)
[2018-10-07] MEDS ORDERED: CefTRIAXone 2,000 MG VIAL IVPB SCH (21:00)
[2018-10-07] MEDS ORDERED: NON-FORMULARY MEDICATION 1 EACH EACH PO SCH (21:00)
[2018-10-08] MEDS: Albuterol 2.5 MG/3 ML NEBULIZER IH SCH ×4 (04:45→21:38)
[2018-10-08] MEDS: Gabapentin 300 MG CAPSULE PO SCH ×3 (07:49→20:05)
[2018-10-08] MEDS: Diltiazem CD (24hr) 180 MG CAPSULE PO SCH (07:49)
[2018-10-08] MEDS: Cholecalciferol (D-3) 1,000 UNIT (25MCG) TABLET PO SCH (07:49)
[2018-10-08] MEDS: Lactobacillus 1 EACH CAP.SPRINK PO SCH ×2 (07:49→20:04)
[2018-10-08] MEDS: Apixaban 5 MG TABLET PO SCH ×2 (07:49→20:05)
[2018-10-08] MEDS: Bumetanide 1 MG TABLET PO SCH (07:50)
[2018-10-08] MEDS: Osteo Bi-Flex Caplet PO SCH (07:58)
[2018-10-08] MEDS ORDERED: Patient Taking Own Medication 1 EACH PO SCH (09:00)
[2018-10-08] MEDS ORDERED: NON-FORMULARY MEDICATION 1 EACH EACH PO SCH (09:00)
[2018-10-08] MEDS: FISH OIL 300 MG PO SCH ×2 (09:51→20:10)
[2018-10-08] MEDS: *HR* HYDROcodone/Acet 10/325 mg TABLET PO PRN ×2 (12:22→20:05)
--- NOTE | 2018-10-08 16:42 | Internal Med Progress Note ---
Date of Encounter: 10/08/18 Time of Encounter: 16:35 - Assessment and plan (1) Bacteremia due to Klebsiella pneumoniae Current Visit: No Status: Acute Assessment and plan: October 08. Continue IV Rocephin with lactobacillus (2) Acute exacerbation of chronic obstructive airways disease Current Visit: No Status: Acute Assessment and plan: October 08. As above (3) Hypertension Current Visit: No Status: Chronic Assessment and plan: October 08. Continue Betapace and diltiazem. Qualifiers: Hypertension type: essential hypertension Qualified Code(s): I10 - Essential (primary) hypertension (4) Atrial fibrillation Current Visit: No Status: Chronic Assessment and plan: October 08. Continue Betapace, diltiazem, and Eliquis. Qualifiers: Atrial fibrillation type: paroxysmal Qualified Code(s): I48.0 - Paroxysmal atrial fibrillation (5) Anemia Current Visit: No Status: Chronic Assessment and plan: October 08. She received iron dextran infusion during acute care stay. Continue to monitor CBC periodically. Qualifiers: Anemia type: unspecified type Qualified Code(s): D64.9 - Anemia, unspecified (6) DM type 2 (diabetes mellitus, type 2) Current Visit: No Status: Chronic Assessment and plan: October 08. Hemoglobin A1c acceptable at 5.9%. Qualifiers: Diabetes mellitus intermediate card tender insulin use: without penitentiary use Diabetes mellitus complication status: with kidney complications Diabetes mellitus complication detail: with chronic kidney disease Chronic kidney disease stage: stage 3 (moderate) Qualified Code(s): E11.22 - Type 2 diabetes mellitus with diabetic chronic kidney disease; N18.3 - Chronic kidney disease, stage 3 (moderate) (7) CKD (chronic kidney disease) stage 3, GFR 30-59 ml/min Current Visit: No Status: Chronic Assessment and plan: October 08. Monitor renal indices periodically. (8) Left hip pain Current Visit: Yes Status: Acute Assessment and plan: October 08. BenGay and Lidoderm patch will be ordered. - Subjective Interval history: October 08. She was hospitalized in [facility] acute-care October 02- after presenting with dyspnea. She was found to have Klebsiella pneumoniae bacteremia with exacerbation of COPD. She was started on IV antibiotics and made good clinical improvement. She was discharged to swing bed for ongoing IV antibiotic therapy and PT/OT intervention prior to returning to independent living at home. She has no new complaints today except slightly worse pain in her left hip after exercise. - Constitutional Vitals: Temp Pulse Resp BP Pulse Ox 97.6 F 59 16 133/58 93 10/08/18 07:12 10/08/18 07:12 10/08/18 15:55 10/08/18 07:12 10/08/18 15:55 Exam: She is sitting in a chair at bedside resting comfortably. Her affect is overall cheerful. Extremities show 1+ edema bilaterally. I reviewed her medications and lab results. Consult Discharge Plan - Plan Referrals: Reuben Leger MD [Primary Care Provider] - 1 week
[2018-10-08] MEDS ORDERED: Methyl Salicylate/Menthol 57 APPL/57 GM TUBE TP SCH (16:46)
[2018-10-08] MEDS: cefTRIAXone 2,000 MG in 0.9 % Sodium Chloride Mini Bag 100 ML IVPB SCH (22:48)
[2018-10-09] MEDS: Albuterol 2.5 MG/3 ML NEBULIZER IH SCH ×4 (04:33→21:17)
[2018-10-09] MEDS: *HR* HYDROcodone/Acet 10/325 mg TABLET PO PRN ×3 (05:07→20:01)
[2018-10-09] MEDS: Osteo Bi-Flex Caplet PO SCH (10:04)
[2018-10-09] MEDS: Bumetanide 1 MG TABLET PO SCH (10:05)
[2018-10-09] MEDS: Gabapentin 300 MG CAPSULE PO SCH ×3 (10:05→20:01)
[2018-10-09] MEDS: Cholecalciferol (D-3) 1,000 UNIT (25MCG) TABLET PO SCH (10:05)
[2018-10-09] MEDS: Diltiazem CD (24hr) 180 MG CAPSULE PO SCH (10:06)
[2018-10-09] MEDS: Lactobacillus 1 EACH CAP.SPRINK PO SCH ×2 (10:06→20:01)
[2018-10-09] MEDS: Apixaban 5 MG TABLET PO SCH ×2 (10:06→20:00)
[2018-10-09] MEDS: Methyl Salicylate/Menthol 28 GM TUBE TP SCH (10:07)
[2018-10-09] MEDS: FISH OIL 300 MG PO SCH ×2 (10:08→20:02)
[2018-10-09] MEDS: cefTRIAXone 2,000 MG in 0.9 % Sodium Chloride Mini Bag 100 ML IVPB SCH (22:47)
[2018-10-10] MEDS: *HR* HYDROcodone/Acet 10/325 mg TABLET PO PRN ×4 (00:46→22:35)
[2018-10-10] MEDS: Albuterol 2.5 MG/3 ML NEBULIZER IH SCH ×4 (04:29→22:17)
[2018-10-10] MEDS: Apixaban 5 MG TABLET PO SCH ×2 (09:58→20:43)
[2018-10-10] MEDS: Lactobacillus 1 EACH CAP.SPRINK PO SCH ×2 (09:58→20:42)
[2018-10-10] MEDS: Bumetanide 1 MG TABLET PO SCH (09:58)
[2018-10-10] MEDS: Gabapentin 300 MG CAPSULE PO SCH ×3 (09:59→20:43)
[2018-10-10] MEDS: Cholecalciferol (D-3) 1,000 UNIT (25MCG) TABLET PO SCH (09:59)
[2018-10-10] MEDS: Diltiazem CD (24hr) 180 MG CAPSULE PO SCH (09:59)
[2018-10-10] MEDS: Osteo Bi-Flex Caplet PO SCH (09:59)
[2018-10-10] MEDS: FISH OIL 300 MG PO SCH ×2 (10:00→20:44)
[2018-10-10] MEDS: Methyl Salicylate/Menthol 28 GM TUBE TP SCH (10:02)
[2018-10-10] MEDS: cefTRIAXone 2,000 MG in 0.9 % Sodium Chloride Mini Bag 100 ML IVPB SCH (20:43)
[2018-10-11] MEDS: Albuterol 2.5 MG/3 ML NEBULIZER IH SCH (04:17)
[2018-10-11] MEDS: *HR* HYDROcodone/Acet 10/325 mg TABLET PO PRN ×3 (05:13→21:22)
[2018-10-11] MEDS: Lactobacillus 1 EACH CAP.SPRINK PO SCH ×2 (07:46→21:23)
[2018-10-11] MEDS: Diltiazem CD (24hr) 180 MG CAPSULE PO SCH (07:46)
[2018-10-11] MEDS: Bumetanide 1 MG TABLET PO SCH (07:46)
[2018-10-11] MEDS: Gabapentin 300 MG CAPSULE PO SCH ×3 (07:46→21:21)
[2018-10-11] MEDS: Cholecalciferol (D-3) 1,000 UNIT (25MCG) TABLET PO SCH (07:46)
[2018-10-11] MEDS: Apixaban 5 MG TABLET PO SCH ×2 (07:46→21:22)
[2018-10-11] MEDS: Osteo Bi-Flex Caplet PO SCH (07:47)
[2018-10-11] MEDS: FISH OIL 300 MG PO SCH ×2 (07:48→21:27)
[2018-10-11] MEDS: Methyl Salicylate/Menthol 28 GM TUBE TP SCH (07:51)
[2018-10-11] MEDS: Albuterol 2.5 MG/3 ML NEBULIZER IH PRN ×2 (12:31→17:43)
--- NOTE | 2018-10-11 14:55 | Internal Med Progress Note ---
Date of Encounter: 10/11/18 Time of Encounter: 14:42 - Assessment and plan (1) Bacteremia due to Klebsiella pneumoniae Current Visit: No Status: Acute Assessment and plan: October 08. Continue IV Rocephin with lactobacillus (2) Acute exacerbation of chronic obstructive airways disease Current Visit: No Status: Acute Assessment and plan: October 08. As above (3) Hypertension Current Visit: No Status: Chronic Assessment and plan: October 08. Continue Betapace and diltiazem. Qualifiers: Hypertension type: essential hypertension Qualified Code(s): I10 - Essential (primary) hypertension (4) Atrial fibrillation Current Visit: No Status: Chronic Assessment and plan: October 08. Continue Betapace, diltiazem, and Eliquis. Qualifiers: Atrial fibrillation type: paroxysmal Qualified Code(s): I48.0 - Paroxysmal atrial fibrillation (5) Anemia Current Visit: No Status: Chronic Assessment and plan: October 08. She received iron dextran infusion during acute care stay. Continue to monitor CBC periodically. October 11. Check CBC today. Qualifiers: Anemia type: unspecified type Qualified Code(s): D64.9 - Anemia, unspecified (6) DM type 2 (diabetes mellitus, type 2) Current Visit: No Status: Chronic Assessment and plan: October 08. Hemoglobin A1c acceptable at 5.9%. Qualifiers: Diabetes mellitus tank terminal gauger insulin use: without tank terminal gauger use Diabetes mellitus complication status: with kidney complications Diabetes mellitus complication detail: with chronic kidney disease Chronic kidney disease stage: stage 3 (moderate) Qualified Code(s): E11.22 - Type 2 diabetes mellitus with diabetic chronic kidney disease; N18.3 - Chronic kidney disease, stage 3 (moderate) (7) CKD (chronic kidney disease) stage 3, GFR 30-59 ml/min Current Visit: No Status: Chronic Assessment and plan: October 08. Monitor renal indices periodically. October 11. Check labs today. (8) Left hip pain Current Visit: Yes Status: Acute Assessment and plan: October 08. BenGay and Lidoderm patch will be ordered. October 11. unimproved on present Rx. CT of abd/pelvis will be done to evaluate both hips and SI joints. - Subjective Interval history: October 08. She was hospitalized in [facility] acute-care October 02- after presenting with dyspnea. She was found to have Klebsiella pneumoniae bacteremia with exacerbation of COPD. She was started on IV antibiotics and made good clinical improvement. She was discharged to swing bed for ongoing IV antibiotic therapy and PT/OT intervention prior to returning to independent living at home. She has no new complaints today except slightly worse pain in her left hip after exercise. October 11. She reports pain in her left hip has not improved. She states there is now also some discomfort in her right hip area. She reports these pains are new since coming to the hospital. - Constitutional Vitals: Temp Pulse Resp BP Pulse Ox 97.6 F 64 18 117/59 96 10/10/18 06:42 10/10/18 06:42 10/11/18 12:32 10/10/18 06:42 10/11/18 12:32 Exam: She still has limited 2+ pitting edema of the lower legs bilaterally. There is no significant pain on internal/external rotation of the hips. She has pain over the right trochanteric bursa. I reviewed her medications and lab results. Consult Discharge Plan - Plan Referrals: Reuben Leger MD [Primary Care Provider] - 1 week
[2018-10-11 15:58] LABS: Basophils % 0.2 %; Eosinophils % 0.3 %; Hematocrit 25.3 % (35.3-44.9); Hemoglobin 7.6 g/dL (11.5-15.4); Immature Granulocytes % 4.3 % (0-4); Lymphocytes # 1.7 K/mcL (0.6-4.6); Lymphocytes % 13.3 %; Mean Corpuscular Hemoglobin 28.6 pg (28.0-33.3); Mean Corpuscular Volume 95.1 fL (83.0-100.0); Mean Platelet Volume 11.7 fL (9.4-12.4); Monocytes # 5.4 K/mcL (0.0-1.3); Monocytes % 43.9 %; Neutrophils # 4.7 K/mcL (1.6-8.9); Red Blood Count 2.66 M/mcL (3.82-4.97); Red Cell Distribution Width 15.6 % (11.5-14.5); White Blood Count 12.4 K/mcL (4.3-11.1)
[2018-10-11 16:16] LABS: Alanine Aminotransferase 14 Units/L (7-52); Albumin 3.5 g/dL (3.5-5.7); Albumin/Globulin Ratio 1.3 (1.1-2.2); Alkaline Phosphatase 45 Units/L (34-104); Aspartate Amino Transferase 14 Units/L (13-39); BUN/Creatinine Ratio 17 (6-26); Bilirubin,Total 0.2 mg/dL (0.3-1.0); Blood Urea Nitrogen 18 mg/dL (8-23); Calcium 8.4 mg/dL (8.6-10.3); Carbon Dioxide 34 mEq/L (23-29); Chloride 98 mEq/L (98-107); Globulin 2.7 g/dL (2.4-3.5); Glucose 133 mg/dL (70-105); Osmolality,Calculated 292 (280-300); Sodium 139 mEq/L (136-145); Total Protein 6.2 g/dL (6.4-8.9); eGFR For African Americans > 60 (> 60); eGFR For Non-African Americans 51 (> 60)
[2018-10-11 16:18] LABS: Platelet Count 46 K/mcL (140-400)
[2018-10-11 17:01] LABS: Platelet Estimate Decreased (Normal)
[2018-10-11] MEDS: cefTRIAXone 2,000 MG in 0.9 % Sodium Chloride Mini Bag 100 ML IVPB SCH (21:23)
[2018-10-11 23:17] LABS: Bilirubin,Urine Negative (Negative); Blood,Urine Small (Negative); Clarity,Urine Clear (Clear); Color,Urine Yellow (Yellow); Glucose,Urine (UA) Normal (Normal); Ketones,Urine Negative (Negative); Leukocyte Esterase,Urine Negative (Negative); Nitrite,Urine Negative (Negative); PH,Urine 5.5 pH Units (5.0-8.0); Protein,Urine 30 mg/dL (Neg-Trace); Specific Gravity,Urine 1.015 (1.010-1.025); Urobilinogen,Urine Normal (Normal)
[2018-10-11 23:51] LABS: C-Reactive Protein 123 mg/L (Less than 10)
[2018-10-12 00:09] LABS: Squamous Epithelial Cell,Urine Few per lpf (None-Few); WBC,Urine 0-3 per hpf (0-3)
[2018-10-12] MEDS: *HR* HYDROcodone/Acet 10/325 mg TABLET PO PRN ×2 (06:54→14:14)
[2018-10-12] MEDS: Albuterol 2.5 MG/3 ML NEBULIZER IH PRN (09:16)
[2018-10-12] MEDS: Apixaban 5 MG TABLET PO SCH ×2 (09:25→21:06)
[2018-10-12] MEDS: Diltiazem CD (24hr) 180 MG CAPSULE PO SCH (09:25)
[2018-10-12] MEDS: Gabapentin 300 MG CAPSULE PO SCH ×3 (09:26→21:17)
[2018-10-12] MEDS: Bumetanide 1 MG TABLET PO SCH (09:27)
[2018-10-12] MEDS: Lactobacillus 1 EACH CAP.SPRINK PO SCH ×2 (09:27→21:17)
[2018-10-12] MEDS: Cholecalciferol (D-3) 1,000 UNIT (25MCG) TABLET PO SCH (09:27)
[2018-10-12] MEDS: Methyl Salicylate/Menthol 28 GM TUBE TP SCH (09:28)
[2018-10-12] MEDS: FISH OIL 300 MG PO SCH ×2 (09:29→21:19)
[2018-10-12] MEDS: Osteo Bi-Flex Caplet PO SCH (09:29)
--- NOTE | 2018-10-12 17:52 | Internal Med Progress Note ---
Date of Encounter: 10/12/18 Time of Encounter: 17:40 - Assessment and plan (1) Bacteremia due to Klebsiella pneumoniae Current Visit: No Status: Acute Assessment and plan: October 08. Continue IV Rocephin with lactobacillus October 12. Abdominal CT showed changes reflecting possible pyelonephritis. I suspect this was source of Klebsiella bacteremia. Continue IV antibiotics to complete 2 week course. (2) Acute exacerbation of chronic obstructive airways disease Current Visit: No Status: Acute Assessment and plan: October 08. As above (3) Hypertension Current Visit: No Status: Chronic Assessment and plan: October 08. Continue Betapace and diltiazem. Qualifiers: Hypertension type: essential hypertension Qualified Code(s): I10 - Essential (primary) hypertension (4) Atrial fibrillation Current Visit: No Status: Chronic Assessment and plan: October 08. Continue Betapace, diltiazem, and Eliquis. October 11. Hold Eliquis 1 week. Continue Betapace and diltiazem. Qualifiers: Atrial fibrillation type: paroxysmal Qualified Code(s): I48.0 - Paroxysmal atrial fibrillation (5) Anemia Current Visit: No Status: Chronic Assessment and plan: October 08. She received iron dextran infusion during acute care stay. Continue to monitor CBC periodically. October 11. Check CBC today. October 12. Hemoglobin stable at 7.6. Hold Eliquis 1 week. Qualifiers: Anemia type: unspecified type Qualified Code(s): D64.9 - Anemia, unspecified (6) DM type 2 (diabetes mellitus, type 2) Current Visit: No Status: Chronic Assessment and plan: October 08. Hemoglobin A1c acceptable at 5.9%. Qualifiers: Diabetes mellitus intermission coordinator insulin use: without [facility] use Diabetes mellitus complication status: with kidney complications Diabetes mellitus complication detail: with chronic kidney disease Chronic kidney disease stage: stage 3 (moderate) Qualified Code(s): E11.22 - Type 2 diabetes mellitus with diabetic chronic kidney disease; N18.3 - Chronic kidney disease, stage 3 (moderate) (7) CKD (chronic kidney disease) stage 3, GFR 30-59 ml/min Current Visit: No Status: Chronic Assessment and plan: October 08. Monitor renal indices periodically. October 11. Check labs today. October 12. Creatinine 1.03 with estimated GFR 51. Continue to monitor periodically. (8) Left hip pain Current Visit: Yes Status: Acute Assessment and plan: October 08. BenGay and Lidoderm patch will be ordered. October 11. unimproved on present Rx. CT of abd/pelvis will be done to evaluate both hips and SI joints. October 12. CT of abdomen/ pelvis showed no acute superficial soft tissue or osseous structure abnormality evident. She reports the orthopedist recommended topical cream (? Voltaren) initially with injections if no improvement. No written or typed note returned from the orthopedist visit with patient. - Subjective Interval history: October 08. She was hospitalized in [facility] acute-care October 02- after presenting with dyspnea. She was found to have Klebsiella pneumoniae bacteremia with exacerbation of COPD. She was started on IV antibiotics and made good clinical improvement. She was discharged to swing bed for ongoing IV antibiotic therapy and PT/OT intervention prior to returning to independent living at home. She has no new complaints today except slightly worse pain in her left hip after exercise. October 11. She reports pain in her left hip has not improved. She states there is now also some discomfort in her right hip area. She reports these pains are new since coming to the hospital. October 12. She was seen by Dr. Hinton in general surgery clinic to follow-up on the abdominal wall hematoma. She was seen by orthopedist this afternoon regarding her hip pain. She has no new complaints. - Constitutional Vitals: Temp Pulse Resp BP Pulse Ox 98.0 F 70 16 133/59 97 10/12/18 06:29 10/12/18 06:29 10/12/18 09:16 10/12/18 06:29 10/12/18 09:16 Exam: She is sitting in a chair at bedside resting comfortably and appears in no acute distress. Her lower leg edema is unchanged. I reviewed her medications and lab results. I spoke with Dr. Hinton personally who recommended Eliquis be held for 1 week then restarted with repeat CT scan done in a few weeks to reassess hematoma size. Internal Medicine: Result - Labs CBC & Chem 7: 10/11/18 15:47 10/11/18 15:47 Labs: Urine 10/11/18 Range/Units 23:08 Urine Color Yellow (Yellow) Urine Clarity Clear (Clear) Urine pH 5.5 (5.0-8.0) pH Units Ur Specific [place] 1.015 (1.010-1.025) Urine Protein 30 H (Neg-Trace) mg/dL Urine Glucose (UA) Normal (Normal) mg/dL Consult Discharge Plan - Plan Referrals: Reuben Leger MD [Primary Care Provider] - 1 week
[2018-10-12] MEDS: cefTRIAXone 2,000 MG in 0.9 % Sodium Chloride Mini Bag 100 ML IVPB SCH (21:19)
[2018-10-13] MEDS: *HR* HYDROcodone/Acet 10/325 mg TABLET PO PRN ×2 (03:21→21:06)
[2018-10-13] MEDS: FISH OIL 300 MG PO SCH ×2 (08:05→21:02)
[2018-10-13] MEDS: Lactobacillus 1 EACH CAP.SPRINK PO SCH ×2 (09:29→20:53)
[2018-10-13] MEDS: Diltiazem CD (24hr) 180 MG CAPSULE PO SCH (09:29)
[2018-10-13] MEDS: Gabapentin 300 MG CAPSULE PO SCH ×3 (09:30→20:53)
[2018-10-13] MEDS: Cholecalciferol (D-3) 1,000 UNIT (25MCG) TABLET PO SCH (09:30)
[2018-10-13] MEDS: Osteo Bi-Flex Caplet PO SCH (09:31)
[2018-10-13] MEDS: Apixaban 5 MG TABLET PO SCH (09:31)
[2018-10-13] MEDS: Bumetanide 1 MG TABLET PO SCH (09:31)
[2018-10-13] MEDS: Methyl Salicylate/Menthol 28 GM TUBE TP SCH (09:32)
[2018-10-13] MEDS: Albuterol 2.5 MG/3 ML NEBULIZER IH PRN (20:19)
[2018-10-13] MEDS: cefTRIAXone 2,000 MG in 0.9 % Sodium Chloride Mini Bag 100 ML IVPB SCH (22:03)
[2018-10-14] MEDS: *HR* HYDROcodone/Acet 10/325 mg TABLET PO PRN ×2 (06:28→21:22)
[2018-10-14] MEDS: Albuterol 2.5 MG/3 ML NEBULIZER IH PRN ×2 (09:25→18:56)
[2018-10-14] MEDS: Lactobacillus 1 EACH CAP.SPRINK PO SCH ×2 (09:28→21:19)
[2018-10-14] MEDS: Cholecalciferol (D-3) 1,000 UNIT (25MCG) TABLET PO SCH (09:28)
[2018-10-14] MEDS: Gabapentin 300 MG CAPSULE PO SCH ×3 (09:28→21:19)
[2018-10-14] MEDS: Diltiazem CD (24hr) 180 MG CAPSULE PO SCH (09:28)
[2018-10-14] MEDS: Bumetanide 1 MG TABLET PO SCH (09:28)
[2018-10-14] MEDS: FISH OIL 300 MG PO SCH ×2 (09:30→21:19)
[2018-10-14] MEDS: Osteo Bi-Flex Caplet PO SCH (09:30)
[2018-10-14] MEDS: Methyl Salicylate/Menthol 28 GM TUBE TP SCH (09:31)
[2018-10-14] MEDS: cefTRIAXone 2,000 MG in 0.9 % Sodium Chloride Mini Bag 100 ML IVPB SCH (22:44)
[2018-10-15] MEDS: *HR* HYDROcodone/Acet 10/325 mg TABLET PO PRN ×3 (03:29→21:59)
[2018-10-15 07:35] LABS: Hematocrit 26.4 % (35.3-44.9); Hemoglobin 7.9 g/dL (11.5-15.4); Mean Corpuscular HGB Conc 29.9 g/dL (31.6-35.5); Mean Corpuscular Hemoglobin 28.2 pg (28.0-33.3); Mean Corpuscular Volume 94.3 fL (83.0-100.0); Mean Platelet Volume 12.8 fL (9.4-12.4); Red Cell Distribution Width 15.8 % (11.5-14.5)
[2018-10-15 07:47] LABS: Platelet Count 48 K/mcL (140-400)
[2018-10-15 07:57] LABS: BUN/Creatinine Ratio 19 (6-26); Blood Urea Nitrogen 16 mg/dL (8-23); Carbon Dioxide 40 mEq/L (23-29); Chloride 99 mEq/L (98-107); Glucose 115 mg/dL (70-105); Osmolality,Calculated 298 (280-300); Sodium 143 mEq/L (136-145); eGFR For African Americans > 60 (> 60); eGFR For Non-African Americans > 60 (> 60)
[2018-10-15 08:21] LABS: Eosinophils # 0.1 K/mcL (0.0-0.6); Monocytes # 2.5 K/mcL (0.0-1.3); Neutrophils # 2.1 K/mcL (1.6-8.9)
[2018-10-15 08:22] LABS: Large Platelets Present (Not Present); Platelet Estimate Marked Decrease (Normal)
[2018-10-15] MEDS: Bumetanide 1 MG TABLET PO SCH (10:32)
[2018-10-15] MEDS: Lactobacillus 1 EACH CAP.SPRINK PO SCH ×2 (10:32→21:46)
[2018-10-15] MEDS: Diltiazem CD (24hr) 180 MG CAPSULE PO SCH (10:32)
[2018-10-15] MEDS: Cholecalciferol (D-3) 1,000 UNIT (25MCG) TABLET PO SCH (10:32)
[2018-10-15] MEDS: Gabapentin 300 MG CAPSULE PO SCH ×3 (10:33→21:46)
[2018-10-15] MEDS: Methyl Salicylate/Menthol 28 GM TUBE TP SCH (10:35)
[2018-10-15] MEDS: Osteo Bi-Flex Caplet PO SCH (10:38)
[2018-10-15] MEDS: Albuterol 2.5 MG/3 ML NEBULIZER IH PRN (10:38)
[2018-10-15] MEDS: FISH OIL 300 MG PO SCH ×2 (10:39→21:48)
[2018-10-15] MEDS: cefTRIAXone 2,000 MG in 0.9 % Sodium Chloride Mini Bag 100 ML IVPB SCH (21:48)
[2018-10-16] MEDS: *HR* HYDROcodone/Acet 10/325 mg TABLET PO PRN ×2 (04:59→11:36)
[2018-10-16 06:23] VITALS: BP 120/55
[2018-10-16] MEDS: Bumetanide 1 MG TABLET PO SCH (08:10)
[2018-10-16] MEDS: Lactobacillus 1 EACH CAP.SPRINK PO SCH (08:11)
[2018-10-16] MEDS: Gabapentin 300 MG CAPSULE PO SCH (08:11)
[2018-10-16] MEDS: Diltiazem CD (24hr) 180 MG CAPSULE PO SCH (08:11)
[2018-10-16] MEDS: Cholecalciferol (D-3) 1,000 UNIT (25MCG) TABLET PO SCH (08:11)
[2018-10-16] MEDS: Methyl Salicylate/Menthol 28 GM TUBE TP SCH (08:11)
[2018-10-16] MEDS: Osteo Bi-Flex Caplet PO SCH (08:12)
[2018-10-16] MEDS: FISH OIL 300 MG PO SCH (08:13)
--- NOTE | 2018-10-16 11:49 | Discharge Summary ---
Date of Encounter: 10/16/18 Time of Encounter: 11:38 - Discharge Diagnosis (1) Bacteremia due to Klebsiella pneumoniae Priority: Primary Status: Acute (2) Acute exacerbation of chronic obstructive airways disease Priority: Secondary Status: Acute (3) Hypertension Priority: Secondary Status: Chronic Qualifiers: Hypertension type: essential hypertension Qualified Code(s): I10 - Essential (primary) hypertension (4) Atrial fibrillation Priority: Secondary Status: Chronic Qualifiers: Atrial fibrillation type: paroxysmal Qualified Code(s): I48.0 - Paroxysmal atrial fibrillation (5) Anemia Priority: Secondary Status: Chronic Qualifiers: Anemia type: unspecified type Qualified Code(s): D64.9 - Anemia, unspecified (6) DM type 2 (diabetes mellitus, type 2) Priority: Secondary Status: Chronic Qualifiers: Diabetes mellitus emt intermediate insulin use: without emt intermediate use Diabetes mellitus complication status: with kidney complications Diabetes mellitus complication detail: with chronic kidney disease Chronic kidney disease stage: stage 3 (moderate) Qualified Code(s): E11.22 - Type 2 diabetes mellitus with diabetic chronic kidney disease; N18.3 - Chronic kidney disease, stage 3 (moderate) (7) CKD (chronic kidney disease) stage 3, GFR 30-59 ml/min Priority: Secondary Status: Chronic (8) Left hip pain Priority: Secondary Status: Acute Hospital course: Ms. Veronica is a 83 year old female who was hospitalized in [facility] acute-care October 02- after presenting with dyspnea. She was found to have Klebsiella pneumoniae bacteremia with exacerbation of COPD. She was started on IV antibiotics and made good clinical improvement. She was discharged to swing bed for ongoing IV antibiotic therapy and PT/OT intervention prior to returning to independent living at home. She continued IV antibiotics until day of discharge to complete two-week course. WBC normalized to 7.0 on October 15 without left shift present on differential. She will remain off antibiotics at discharge. BUN and creatinine decreased to 16 and 0.5 respectively with estimated GFR> 60. She was seen by Dr. Hinton to follow-up/further evaluate the abdominal hematoma. Dr. Hinton recommended holding Eliquis for 1 week and then restarting. Repeat CT scan can be ordered in a few weeks by her PCP to further evaluate the size of the abdominal hematoma. She saw the orthopedist about pain in her left hip area. She was started on topical anti-inflammatory medication. She will follow up with orthopedist as directed. On October 16 she felt improved and stable for discharge home. She will follow with her PCP Dr. Leger within 1 week. Home health services will be ordered. - Time Spent with Patient Total time spent providing and/or coordinating discharge services: - Discharge Medications Prescriptions: New Bumetanide [Bumex] 1 mg PO DAILY #30 tablet Continued Sotalol [Betapace] 40 mg PO QPM Sertraline [Zoloft] 25 mg PO DAILY Sotalol [Betapace] 80 mg PO QAM Omeprazole [PriLOSEC] 40 mg PO DAILY Gabapentin [Neurontin] 600 mg PO TID Apixaban [Eliquis] 5 mg PO BID Albuterol Sulfate [Proair Hfa] 1 puff IH QID PRN PRN Reason: Wheezing Albuterol Neb [Proventil Neb] 2.5 mg IH Q6HR Gluc/Noam-MSM#1/C/Michael/Apolinar/Bor [Osteo Bi-Flex Caplet] 1 each PO DAILY Biotin 1 mg PO DAILY Potassium Chloride 10 meq PO BIDWM tab.er.prt HYDROcodone/Acet 10/325 mg [[employer] 10-325 mg] 1 tab PO Q6HR PRN PRN Reason: Pain Fluticasone/Vilanterol [Breo Ellipta 100-25 Mcg INH] 1 each IH DAILY [place]ith-3 Fatty Acids [Fish Oil] 300 mg PO BID Diltiazem HCl [Tiazac] 180 mg PO DAILY Non-Formulary Medication 2 cap PO DAILY Non-Formulary Medication 2 cap PO BID Magnesium Oxide [Magnesium] 250 mg PO DAILY Cholecalciferol (Vitamin D3) [Vitamin D3] 400 unit PO DAILY GuaiFENesin ER [Mucinex] 1,200 mg PO BID tbbp.12hr Albuterol Neb [Proventil Neb] 2.5 mg IH Q2H PRN inhsol PRN Reason: Shortness Of Breath/Wheezing Bumetanide [Bumex] 1 mg PO DAILY #0 tablet Discontinued cefTRIAXone [Rocephin] 2,000 mg IVPB Q24H vial Lactobacillus [Culturelle] 1 each PO BID cap.sprink Home Medications: Albuterol Neb [Proventil Neb] 2.5 mg IH Q6HR 07/12/18 [History] Albuterol Sulfate [Proair Hfa] 1 puff IH QID PRN 07/12/18 [History] Apixaban [Eliquis] 5 mg PO BID 07/12/18 [History] Biotin 1 mg PO DAILY 07/12/18 [History] Gabapentin [Neurontin] 600 mg PO TID 07/12/18 [History] Gluc/Noam-MSM#1/C/Michael/Apolinar/Bor [Osteo Bi-Flex Caplet] 1 each PO DAILY 07/12/18 [History] Omeprazole [PriLOSEC] 40 mg PO DAILY 07/12/18 [History] Sertraline [Zoloft] 25 mg PO DAILY 07/12/18 [History] Sotalol [Betapace] 40 mg PO QPM 07/12/18 [History] Sotalol [Betapace] 80 mg PO QAM 07/12/18 [History] Potassium Chloride 10 meq PO BIDWM tab.er.prt 07/16/18 [Rx] Diltiazem HCl [Tiazac] 180 mg PO DAILY 10/02/18 [History] Fluticasone/Vilanterol [Breo Ellipta 100-25 Mcg INH] 1 each IH DAILY 10/02/18 [History] HYDROcodone/Acet 10/325 mg [[employer] 10-325 mg] 1 tab PO Q6HR PRN 10/02/18 [History] Munith-3 Fatty Acids [Fish Oil] 300 mg PO BID 10/02/18 [History] Cholecalciferol (Vitamin D3) [Vitamin D3] 400 unit PO DAILY 10/03/18 [History] Magnesium Oxide [Magnesium] 250 mg PO DAILY 10/03/18 [History] Non-Formulary Medication 2 cap PO BID 10/03/18 [History] Non-Formulary Medication 2 cap PO DAILY 10/03/18 [History] Albuterol Neb [Proventil Neb] 2.5 mg IH Q2H PRN inhsol 10/07/18 [Rx] GuaiFENesin ER [Mucinex] 1,200 mg PO BID tbbp.12hr 10/07/18 [Rx] Bumetanide [Bumex] 1 mg PO DAILY #0 tablet 10/16/18 [Rx] Bumetanide [Bumex] 1 mg PO DAILY #30 tablet 10/16/18 [Rx] Allergies/Adverse Reactions: Allergy/AdvReac Type Severity Reaction Status Date / Time tramadol [From Ultram] AdvReac Itching Verified 10/02/18 20:22 Date of admission: 10/07/18 14:09 Primary care physician: Reuben Leger MD Consults: 10/07/18 14:15 Consult to Occupational Therapy [CONS] Routine Comment: Eval and treat Reason for Consult: generalized weakness, pt lives home alone Does patient have active BEDREST order?: No Is patient medically & hemodynamically stable?: Yes Patient assessed for mobility or mobilized this visit?: Yes Consult to Physical Therapy [CONS] Routine Comment: Eval and Treat Reason for Consult: Generalized weakness Does patient have active BEDREST order?: No Is patient medically & hemodynamically stable?: Yes Patient assessed for mobility or mobilized this visit?: Yes Consult to Litigation Docket Manager [CONS] Routine Reason for SW Consult: Discharge planning, lives home alone - Constitutional Vitals: Temp Pulse Resp BP Pulse Ox 97.5 F L 63 20 120/55 97 10/16/18 06:21 10/16/18 06:21 10/16/18 06:21 10/16/18 06:21 10/16/18 06:21 - Patient Status Disposition: Home Health Service - Discharge Instructions Follow Up With: Reuben Leger MD [Primary Care Provider] - 1 week - Diet and Activity Activity: resume usual activities as tolerated, wear oxygen at all times Diet: advance to your usual diet
--- NOTE | 2018-10-16 11:58 | Physician Discharge Referral ---
Home Health/Hosp Referral Info Transfer to: Home Health Attending Provider: Everardo Provider in Charge Post Discharge: PCP Nellie) - Diagnosis (1) Bacteremia due to Klebsiella pneumoniae Priority: Primary Status: Acute (2) Acute exacerbation of chronic obstructive airways disease Priority: Secondary Status: Acute (3) Hypertension Priority: Secondary Status: Chronic (4) Atrial fibrillation Priority: Secondary Status: Chronic (5) Anemia Priority: Secondary Status: Chronic (6) DM type 2 (diabetes mellitus, type 2) Priority: Secondary Status: Chronic (7) CKD (chronic kidney disease) stage 3, GFR 30-59 ml/min Priority: Secondary Status: Chronic (8) Left hip pain Priority: Secondary Status: Acute - Respiratory Orders Oxygen / L per min (2 L per min by nasal cannula 12/09) Smoking Cessation: Smoking cessation has been advised. For more information, call the [employer] Tobacco Quit Line at 3-665-QOCJ-NOW. - Diet/Nutrition Diet/Nutrition Orders: Cardiac - Activity Activity Orders: Walker - Services Needed Following services are medically necessary services: Nursing, Home Health Aide, Physical Therapy, Occupational Therapy - Transfer Medications Prescriptions: Bumetanide [Bumex] 1 mg PO DAILY #30 tablet Home Medications: Albuterol Neb [Proventil Neb] 2.5 mg IH Q6HR 07/12/18 [History] Albuterol Sulfate [Proair Hfa] 1 puff IH QID PRN 07/12/18 [History] Apixaban [Eliquis] 5 mg PO BID 07/12/18 [History] Biotin 1 mg PO DAILY 07/12/18 [History] Gabapentin [Neurontin] 600 mg PO TID 07/12/18 [History] Gluc/Noam-MSM#1/C/Michael/Apolinar/Bor [Osteo Bi-Flex Caplet] 1 each PO DAILY 07/12/18 [History] Omeprazole [PriLOSEC] 40 mg PO DAILY 07/12/18 [History] Sertraline [Zoloft] 25 mg PO DAILY 07/12/18 [History] Sotalol [Betapace] 40 mg PO QPM 07/12/18 [History] Sotalol [Betapace] 80 mg PO QAM 07/12/18 [History] Potassium Chloride 10 meq PO BIDWM tab.er.prt 07/16/18 [Rx] Diltiazem HCl [Tiazac] 180 mg PO DAILY 10/02/18 [History] Fluticasone/Vilanterol [Breo Ellipta 100-25 Mcg INH] 1 each IH DAILY 10/02/18 [History] HYDROcodone/Acet 10/325 mg [[place] 10-325 mg] 1 tab PO Q6HR PRN 10/02/18 [Hi story] [place]-3 Fatty Acids [Fish Oil] 300 mg PO BID 10/02/18 [History] Cholecalciferol (Vitamin D3) [Vitamin D3] 400 unit PO DAILY 10/03/18 [History] Magnesium Oxide [Magnesium] 250 mg PO DAILY 10/03/18 [History] Non-Formulary Medication 2 cap PO BID 10/03/18 [History] Non-Formulary Medication 2 cap PO DAILY 10/03/18 [History] Albuterol Neb [Proventil Neb] 2.5 mg IH Q2H PRN inhsol 10/07/18 [Rx] GuaiFENesin ER [Mucinex] 1,200 mg PO BID tbbp.12hr 10/07/18 [Rx] Bumetanide [Bumex] 1 mg PO DAILY #0 tablet 10/16/18 [Rx] Bumetanide [Bumex] 1 mg PO DAILY #30 tablet 10/16/18 [Rx] Allergies/Adverse Reactions: Allergy/AdvReac Type Severity Reaction Status Date / Time tramadol [From Ultram] AdvReac Itching Verified 10/02/18 20:22 Certification: Further, I certify that my clinical findings support that this patient is homebound (i.e. absences from home require considerable and taxing effort and are for medical reasons or christian services or infrequently or short duration when for other reasons) because: Homebound Reason: Leaving home requires considerable and taxing effort due to condition (Impaired walking ability, anemia, hypoxemia.) Attestation: My signature below is to certify that this patient is under my care and that I, or nurse practitioner, or a physician's senior assistant manager working with me, has a [id number] encounter with this patient.
== END 2018-10-16 13:12 | disposition home health service (06) | DRG 872 ==
LOC: INPPIK 14:09
PROVIDERS: ADMIT Internal Medicine; ATTEND Internal Medicine

== ENCOUNTER 2019-06-21 18:12 | Observation (INO) ==
[2019-06-21 19:49] LABS: Troponin I < 0.03 ng/mL (< 0.04)
[2019-06-21 19:52] LABS: Albumin 3.7 g/dL (3.5-5.7); Albumin/Globulin Ratio 1.4 (1.1-2.2); Bilirubin,Direct 0.1 mg/dL (0.0-0.2); Bilirubin,Indirect 0.4 mg/dL (0.0-1.0); Bilirubin,Total 0.5 mg/dL (0.3-1.0); Calcium 8.8 mg/dL (8.6-10.3); Globulin 2.7 g/dL (2.4-3.5); Potassium 5.3 mEq/L (3.5-5.1); Total Protein 6.4 g/dL (6.4-8.9)
[2019-06-21 19:52] LABS: Basophils % 0.1 %; Eosinophils # 0.1 K/mcL (0.0-0.6); Eosinophils % 0.4 %; Hematocrit 26.6 % (35.3-44.9); Hemoglobin 8.2 g/dL (11.5-15.4); Immature Granulocytes % 6.9 % (0-4); Lymphocytes # 0.7 K/mcL (0.6-4.6); Lymphocytes % 4.8 %; Mean Corpuscular HGB Conc 30.8 g/dL (31.6-35.5); Mean Corpuscular Hemoglobin 28.3 pg (28.0-33.3); Mean Corpuscular Volume 91.7 fL (83.0-100.0); Mean Platelet Volume 12.7 fL (9.4-12.4); Monocytes % 18.5 %; Neutrophils # 9.9 K/mcL (1.6-8.9); Segmented Neutrophils % 69.3 %; White Blood Count 14.3 K/mcL (4.3-11.1)
[2019-06-21 19:54] LABS: Lipase 12 Units/L (11-82)
[2019-06-21 19:54] LABS: Monocytes # 2.7 K/mcL (0.0-1.3); Platelet Count 77 K/mcL (140-400)
[2019-06-21 20:23] LABS: Platelet Estimate Marked Decrease (Normal)
[2019-06-21 20:47] LABS: Bilirubin,Urine Negative (Negative); Blood,Urine Large (Negative); Clarity,Urine Cloudy (Clear); Color,Urine Yellow (Yellow); Glucose,Urine (UA) Normal (Normal); Ketones,Urine Negative (Negative); Leukocyte Esterase,Urine Large (Negative); Nitrite,Urine Negative (Negative); PH,Urine 5.5 pH Units (5.0-8.0); Protein,Urine 30 mg/dL (Neg-Trace); Specific Gravity,Urine 1.015 (1.010-1.025); Urobilinogen,Urine Normal (Normal)
[2019-06-21 20:55] LABS: RBC,Urine 30-50 per hpf (0-3); Squamous Epithelial Cell,Urine Moderate per lpf (None-Few); WBC,Urine TNTC per hpf (0-3)
[2019-06-21 20:56] LABS: Bacteria,Urine Many per hpf (None-Few); Mucus,Urine Few per lpf (Few)
[2019-06-21] MEDS ORDERED: 0.9 % Sodium Chloride 1,000 ML IVC ONE (21:01)
[2019-06-21] MEDS ORDERED: 0.9 % Sodium Chloride 1,000 ML IVC SCH (22:33)
[2019-06-21] MEDS ORDERED: *HR* HYDROcodone/Acet 10/325 mg TABLET PO PRN (22:33)
[2019-06-21] MEDS ORDERED: Naloxone 0.4 MG/ML INJ IVP PRN (22:33)
[2019-06-21] MEDS ORDERED: *HR* Etomidate 20 MG/10 ML AMPUL IVP ONE (23:47)
[2019-06-22] MEDS ORDERED: Albuterol 2.5 MG/3 ML NEBULIZER IH SCH
[2019-06-22] MEDS ORDERED: *HR* Rocuronium Bromide 50 MG/5 ML VIAL IVP ONE (00:01)
[2019-06-22 00:12] LABS: Eosinophils % 0.2 %; Hematocrit 24.6 % (35.3-44.9); Hemoglobin 7.6 g/dL (11.5-15.4); Immature Granulocytes % 8.2 % (0-4); Lymphocytes # 1.3 K/mcL (0.6-4.6); Lymphocytes % 5.7 %; Mean Corpuscular HGB Conc 30.9 g/dL (31.6-35.5); Mean Corpuscular Hemoglobin 28.5 pg (28.0-33.3); Mean Corpuscular Volume 92.1 fL (83.0-100.0); Mean Platelet Volume 12.8 fL (9.4-12.4); Monocytes # 5.8 K/mcL (0.0-1.3); Monocytes % 26.2 %; Neutrophils # 13.2 K/mcL (1.6-8.9); Red Blood Count 2.67 M/mcL (3.82-4.97); Red Cell Distribution Width 13.9 % (11.5-14.5); Segmented Neutrophils % 59.7 %; White Blood Count 22.1 K/mcL (4.3-11.1)
[2019-06-22 00:18] LABS: Platelet Count 78 K/mcL (140-400)
[2019-06-22 00:30] LABS: Calcium 8.5 mg/dL (8.6-10.3); Potassium 5.4 mEq/L (3.5-5.1)
[2019-06-22 00:43] LABS: Basophilic Stippling 1+ (Not Present); Hypochromasia Present (Not Present); Platelet Estimate Decreased (Normal)
[2019-06-22 00:44] LABS: Polychromasia 1+ (Not Present)
[2019-06-22] MEDS ORDERED: *HR* Rocuronium Bromide 50 MG/5 ML VIAL ONE (01:25)
[2019-06-22] MEDS ORDERED: *HR* Etomidate 20 MG/10 ML AMPUL IVP ONE (01:25)
[2019-06-22 02:36] VITALS: BP 57/34
[2019-06-22] MEDS ORDERED: Furosemide 20 MG TABLET PO SCH (08:00)
[2019-06-22] MEDS ORDERED: NON-FORMULARY MEDICATION 1 EACH EACH (Gluc/Chon-Msm#1/C/Mang/Bos/Bor [Osteo Bi-Flex Caplet PO SCH (09:00)
[2019-06-22] MEDS ORDERED: Magnesium Oxide 400 MG TABLET PO SCH (09:00)
[2019-06-22] MEDS ORDERED: DilTIAZem CD (24hr) 180 MG CAP.ER.24H PO SCH (09:00)
[2019-06-22] MEDS ORDERED: NON-FORMULARY MEDICATION 1 EACH EACH (Omega-3 Fatty Acids [Fish Oil] 300 MG) PO SCH (09:00)
[2019-06-22] MEDS ORDERED: cefTRIAXone 1,000 MG in 0.9 % Sodium Chloride Mini Bag 100 ML IVPB SCH (09:00)
[2019-06-22] MEDS ORDERED: NON-FORMULARY MEDICATION 1 EACH EACH (Biotin 1 MG) PO SCH (09:00)
[2019-06-22] MEDS ORDERED: Gabapentin 300 MG CAPSULE PO SCH (09:00)
[2019-06-22] MEDS ORDERED: Apixaban 5 MG TABLET PO SCH (09:00)
[2019-06-22] MEDS ORDERED: Cholecalciferol (D-3) 1,000 UNIT (25MCG) TABLET PO SCH (09:00)
[2019-06-22] MEDS ORDERED: Multivit/Ca/Min/Fe/FA 1 TAB TABLET PO SCH (09:00)
[2019-06-22] MEDS ORDERED: lisinopriL 10 MG TABLET PO SCH (09:00)
[2019-06-22] MEDS ORDERED: Ascorbic Acid 500 MG TABLET PO SCH (09:00)
[2019-06-22] MEDS ORDERED: Cyanocobalamin (B-12) 1,000 MCG TABLET PO SCH (09:00)
[2019-06-22] MEDS ORDERED: Budesonide/Formoterol 160/4.5 1 PUFF INH IH SCH (10:00)
[2019-06-23 13:13] LABS: Acinetobacter baumannii by PCR Not Detected (Not Detect); Candida albicans by PCR Not Detected (Not Detect); Candida glabrata by PCR Not Detected (Not Detect); Candida krusei by PCR Not Detected (Not Detect); Candida parapsilosis by PCR Not Detected (Not Detect); Candida tropicalis by PCR Not Detected (Not Detect); Enterobacter cloacae Cmplx PCR Not Detected (Not Detect); Enterococcus by PCR Not Detected (Not Detect); Escherichia coli by PCR Not Detected (Not Detect); Klebsiella oxytoca by PCR DETECTED (Not Detect); Klebsiella pneumoniae by PCR Not Detected (Not Detect); Proteus by PCR Not Detected (Not Detect); Pseudomonas aeruginosa by PCR Not Detected (Not Detect); Serratia marcescens by PCR Not Detected (Not Detect); Staphylococcus aureus by PCR Not Detected (Not Detect); Staphylococcus by PCR Not Detected (Not Detect); Streptococcus agalactiae(B)PCR Not Detected (Not Detect); Streptococcus by PCR Not Detected (Not Detect); Streptococcus pneumoniae PCR Not Detected (Not Detect); Streptococcus pyogenes (A) PCR Not Detected (Not Detect); blaKPC Carbapenem-Resist Gene Not Detected (Not Detect)
== END 2019-06-22 01:25 | disposition other institution (70) ==
LOC: EMEROOPIK 18:12 → INPPIK 18:12
PROVIDERS: ADMIT Family Medicine; ATTEND Family Medicine

== ENCOUNTER 2019-12-28 15:18 | Inpatient (IN) ==
[2019-12-28] MEDS ORDERED: Ondansetron 4 MG/2 ML VIAL IVP ONE (15:29)
[2019-12-28 15:59] LABS: Hematocrit 28.8 % (35.3-44.9); Hemoglobin 8.5 g/dL (11.5-15.4); Mean Corpuscular HGB Conc 29.5 g/dL (31.6-35.5); Mean Corpuscular Hemoglobin 28.1 pg (28.0-33.3); Mean Platelet Volume 13.3 fL (9.4-12.4); Red Blood Count 3.03 M/mcL (3.82-4.97); Red Cell Distribution Width 16.8 % (11.5-14.5); White Blood Count 9.6 K/mcL (4.3-11.1)
[2019-12-28 16:06] LABS: Platelet Count 44 K/mcL (140-400)
[2019-12-28 16:11] LABS: Eosinophils # 0.2 K/mcL (0.0-0.6); Lymphocytes # 2.3 K/mcL (0.6-4.6); Monocytes # 1.5 K/mcL (0.0-1.3); Neutrophils # 5.6 K/mcL (1.6-8.9); Platelet Estimate Marked Decrease (Normal)
[2019-12-28 16:16] LABS: Bilirubin,Urine Negative (Negative); Blood,Urine Small (Negative); Clarity,Urine Clear (Clear); Color,Urine Yellow (Yellow); Glucose,Urine (UA) Normal (Normal); Ketones,Urine Negative (Negative); Leukocyte Esterase,Urine Trace (Negative); Nitrite,Urine Negative (Negative); Protein,Urine Negative (Neg-Trace); Urobilinogen,Urine Normal (Normal)
[2019-12-28 16:17] LABS: Activated Partial Thrombo Time 34.9 Seconds (26.0-36.0); INR 1.7; Prothrombin Time 19.4 Seconds (9.4-12.1)
[2019-12-28 16:19] LABS: Alanine Aminotransferase 9 Units/L (7-52); Albumin/Globulin Ratio 1.5 (1.1-2.2); Alkaline Phosphatase 53 Units/L (34-104); Amylase 19 Units/L (29-103); Aspartate Amino Transferase 13 Units/L (13-39); BUN/Creatinine Ratio 28 (6-26); Bilirubin,Indirect 0.6 mg/dL (0.0-1.0); Bilirubin,Total 0.6 mg/dL (0.3-1.0); Blood Urea Nitrogen 38 mg/dL (8-23); Calcium 9.3 mg/dL (8.6-10.3); Carbon Dioxide 37 mEq/L (23-29); Chloride 100 mEq/L (98-107); Globulin 2.6 g/dL (2.4-3.5); Glucose 139 mg/dL (70-105); Lipase 7 Units/L (11-82); Osmolality,Calculated 303 (280-300); Potassium 5.3 mEq/L (3.5-5.1); Sodium 141 mEq/L (136-145); Total Protein 6.6 g/dL (6.4-8.9); eGFR For African Americans 45 (> 60); eGFR For Non-African Americans 37 (> 60)
[2019-12-28 16:21] LABS: Troponin I < 0.03 ng/mL (< 0.04)
[2019-12-28 16:23] LABS: Bacteria,Urine Few per hpf (None-Few); Mucus,Urine Few per lpf (None-Few); RBC,Urine 0-3 per hpf (0-3)
[2019-12-28] MEDS ORDERED: cefTRIAXone 2,000 MG in 0.9 % Sodium Chloride Mini Bag 100 ML IVPB ONE (16:45)
[2019-12-28] MEDS ORDERED: Azithromycin 500 MG in 0.9 % Sodium Chloride 250 ML IVPB ONE (16:45)
[2019-12-28] MEDS ORDERED: Naloxone 0.4 MG/ML INJ IVP PRN (17:12)
[2019-12-28] MEDS ORDERED: Acetaminophen 325 MG TABLET PO PRN (17:12)
[2019-12-28] MEDS ORDERED: Mag Hydrox/Al Hydrox/Simeth 30 ML UDC PO PRN (17:12)
[2019-12-28] MEDS ORDERED: Ondansetron 4 MG/2 ML VIAL IVP PRN (17:12)
[2019-12-28] MEDS ORDERED: Furosemide 40 MG/4 ML VIAL IVP ONE (17:23)
[2019-12-28] MEDS: MethylPREDNISolone 40 MG/ML VIAL IVP SCH (20:42)
[2019-12-28] MEDS: Patient Taking Own Medication 1 EACH OP SCH (20:47)
[2019-12-28] MEDS: Gabapentin 300 MG CAPSULE PO SCH (20:47)
[2019-12-28] MEDS: Apixaban 5 MG TABLET PO SCH (20:48)
[2019-12-29] MEDS: MethylPREDNISolone 40 MG/ML VIAL IVP SCH ×3 (03:02→16:43)
[2019-12-29] MEDS: *HR* HYDROcodone/Acet 10/325 mg TABLET PO PRN ×2 (05:46→18:14)
[2019-12-29 07:17] LABS: Basophils % 0.2 %; Hematocrit 30.1 % (35.3-44.9); Hemoglobin 8.6 g/dL (11.5-15.4); Immature Granulocytes % 2.7 % (0-4); Lymphocytes # 0.9 K/mcL (0.6-4.6); Lymphocytes % 17.2 %; Mean Corpuscular HGB Conc 28.6 g/dL (31.6-35.5); Mean Corpuscular Hemoglobin 27.8 pg (28.0-33.3); Mean Corpuscular Volume 97.4 fL (83.0-100.0); Mean Platelet Volume 12.6 fL (9.4-12.4); Monocytes # 0.3 K/mcL (0.0-1.3); Monocytes % 6.1 %; Neutrophils # 3.8 K/mcL (1.6-8.9); Red Blood Count 3.09 M/mcL (3.82-4.97); Red Cell Distribution Width 16.6 % (11.5-14.5); Segmented Neutrophils % 73.8 %; White Blood Count 5.1 K/mcL (4.3-11.1)
[2019-12-29 07:20] LABS: Platelet Count 40 K/mcL (140-400)
[2019-12-29 07:45] LABS: Calcium 9.2 mg/dL (8.6-10.3); Potassium 5.6 mEq/L (3.5-5.1)
[2019-12-29] MEDS: Fluticasone Propionate Nasal 50 MCG/SPRAY BOTTLE NS SCH (08:21)
[2019-12-29] MEDS: Furosemide 20 MG/2 ML VIAL IVP SCH ×2 (08:21→20:08)
[2019-12-29] MEDS: Gabapentin 300 MG CAPSULE PO SCH ×3 (08:21→20:05)
[2019-12-29] MEDS: DilTIAZem CD (24hr) 180 MG CAP.ER.24H PO SCH (08:22)
[2019-12-29] MEDS: Apixaban 5 MG TABLET PO SCH ×2 (08:22→20:05)
[2019-12-29] MEDS: Magnesium Oxide 400 MG TABLET PO SCH (08:22)
[2019-12-29] MEDS: Patient Taking Own Medication 1 EACH OP SCH ×2 (08:23→20:17)
[2019-12-29] MEDS: Cyanocobalamin (B-12) 1,000 MCG TABLET PO SCH (08:24)
[2019-12-29] MEDS ORDERED: lisinopriL 10 MG TABLET PO SCH (09:00)
[2019-12-29] MEDS ORDERED: NON-FORMULARY MEDICATION 1 EACH EACH (Potassium Chloride [Klor-Con 10] 10 MEQ) PO SCH (09:00)
[2019-12-29] MEDS: Budesonide/Formoterol 80/4.5 1 PUFF INH IH SCH ×2 (10:24→21:08)
[2019-12-29] MEDS: cefTRIAXone 2,000 MG in 0.9 % Sodium Chloride Mini Bag 100 ML IVPB SCH (15:56)
[2019-12-29] MEDS: Azithromycin 500 MG in 0.9 % Sodium Chloride 250 ML IVPB SCH (16:44)
[2019-12-30] MEDS ORDERED: *HR* Metoprolol 5 MG/5 ML VIAL IVP ONE ×5 (03:57→22:09)
[2019-12-30] MEDS ORDERED: Furosemide 20 MG/2 ML VIAL IVP ONE (04:49)
[2019-12-30] MEDS: MethylPREDNISolone 40 MG/ML VIAL IVP SCH ×2 (05:04→18:48)
[2019-12-30] MEDS: DilTIAZem CD (24hr) 180 MG CAP.ER.24H PO SCH (07:51)
[2019-12-30] MEDS: Cyanocobalamin (B-12) 1,000 MCG TABLET PO SCH (07:51)
[2019-12-30] MEDS: Gabapentin 300 MG CAPSULE PO SCH ×3 (07:51→20:11)
[2019-12-30] MEDS: Magnesium Oxide 400 MG TABLET PO SCH (07:52)
[2019-12-30] MEDS: Apixaban 5 MG TABLET PO SCH ×2 (07:52→20:11)
[2019-12-30] MEDS: Furosemide 20 MG/2 ML VIAL IVP SCH ×2 (07:52→10:29)
[2019-12-30] MEDS: Patient Taking Own Medication 1 EACH OP SCH (07:53)
[2019-12-30] MEDS: Fluticasone Propionate Nasal 50 MCG/SPRAY BOTTLE NS SCH (07:53)
[2019-12-30 09:06] LABS: Basophils % 0.1 %; Eosinophils % 0.1 %; Hematocrit 29.5 % (35.3-44.9); Hemoglobin 8.5 g/dL (11.5-15.4); Immature Granulocytes % 0.7 % (0-4); Lymphocytes % 12.7 %; Mean Corpuscular HGB Conc 28.8 g/dL (31.6-35.5); Mean Corpuscular Hemoglobin 27.8 pg (28.0-33.3); Mean Corpuscular Volume 96.4 fL (83.0-100.0); Mean Platelet Volume 12.9 fL (9.4-12.4); Monocytes # 2.2 K/mcL (0.0-1.3); Monocytes % 27.1 %; Neutrophils # 4.8 K/mcL (1.6-8.9); Red Blood Count 3.06 M/mcL (3.82-4.97); Red Cell Distribution Width 16.9 % (11.5-14.5); Segmented Neutrophils % 59.3 %; White Blood Count 8.1 K/mcL (4.3-11.1)
[2019-12-30 09:20] LABS: Platelet Count 38 K/mcL (140-400)
[2019-12-30 09:33] LABS: Calcium 9.4 mg/dL (8.6-10.3); Potassium 4.2 mEq/L (3.5-5.1)
[2019-12-30] MEDS: Budesonide/Formoterol 80/4.5 1 PUFF INH IH SCH ×2 (09:50→21:41)
[2019-12-30 10:23] LABS: Platelet Estimate Decreased (Normal)
[2019-12-30] MEDS ORDERED: 0.9 % Sodium Chloride 250 ML IVC ONE ×4 (10:38→14:06)
[2019-12-30] MEDS: *HR* HYDROcodone/Acet 10/325 mg TABLET PO PRN ×2 (12:07→21:00)
[2019-12-30] MEDS ORDERED: *HR* LORazepam 0.5 MG TABLET PO ONE (12:58)
[2019-12-30] MEDS: 0.9 % Sodium Chloride 1,000 ML IVC SCH (14:18)
[2019-12-30] MEDS ORDERED: Perflutren Lipid Microsphere 1.3 ML in 0.9 % Sodium Chloride 8.7 ML IVP PRN (15:13)
[2019-12-30] MEDS ORDERED: DilTIAZem 125 MG in D5% in Water 100 ML IVC SCH ×2 (16:45→17:41)
[2019-12-30] MEDS ORDERED: DilTIAZem 50 MG/50 ML IV.SOLN IVC SCH (17:00)
[2019-12-30] MEDS ORDERED: cefTRIAXone 2,000 MG in 0.9 % Sodium Chloride 10 ML IVPB SCH (18:45)
[2019-12-30] MEDS: cefTRIAXone 2,000 MG in 0.9 % Sodium Chloride Mini Bag 100 ML IVPB SCH (19:03)
[2019-12-30] MEDS: Azithromycin 500 MG in 0.9 % Sodium Chloride 250 ML IVPB SCH (21:16)
[2019-12-30] MEDS ORDERED: 0.9 % Sodium Chloride 250 ML ONE (21:21)
[2019-12-30] MEDS: RESTASIS OPH OP SCH (23:32)
[2019-12-31 01:29] LABS: Hematocrit 27.5 % (35.3-44.9); Hemoglobin 7.9 g/dL (11.5-15.4); Mean Corpuscular HGB Conc 28.7 g/dL (31.6-35.5); Mean Corpuscular Hemoglobin 27.6 pg (28.0-33.3); Mean Corpuscular Volume 96.2 fL (83.0-100.0); Mean Platelet Volume 13.1 fL (9.4-12.4); Platelet Count 36 K/mcL (140-400); Red Blood Count 2.86 M/mcL (3.82-4.97); Red Cell Distribution Width 17.1 % (11.5-14.5); White Blood Count 6.1 K/mcL (4.3-11.1)
[2019-12-31 01:44] LABS: Anisocytosis 1+ (Not Present); Monocytes # 0.5 K/mcL (0.0-1.3); Neutrophils # 4.6 K/mcL (1.6-8.9)
[2019-12-31 01:45] LABS: Large Platelets Present (Not Present); Platelet Estimate Marked Decrease (Normal)
[2019-12-31 01:46] LABS: Calcium 8.6 mg/dL (8.6-10.3); Poikilocytosis 1+ (Not Present); Potassium 3.9 mEq/L (3.5-5.1)
[2019-12-31 01:49] LABS: Hypochromasia Present (Not Present)
[2019-12-31 01:50] LABS: Basophilic Stippling 1+ (Not Present)
[2019-12-31] MEDS: 0.9 % Sodium Chloride 1,000 ML IVC SCH ×2 (03:51→12:39)
[2019-12-31] MEDS: MethylPREDNISolone 40 MG/ML VIAL IVP SCH (05:16)
[2019-12-31] MEDS: *HR* HYDROcodone/Acet 10/325 mg TABLET PO PRN ×2 (05:16→12:33)
[2019-12-31] MEDS: DilTIAZem CD (24hr) 180 MG CAP.ER.24H PO SCH (08:44)
[2019-12-31] MEDS ORDERED: Furosemide 40 MG/4 ML VIAL IVP ONE (08:44)
[2019-12-31] MEDS: Apixaban 5 MG TABLET PO SCH (08:44)
[2019-12-31] MEDS: Cyanocobalamin (B-12) 1,000 MCG TABLET PO SCH (08:44)
[2019-12-31] MEDS: Magnesium Oxide 400 MG TABLET PO SCH (08:45)
[2019-12-31] MEDS: Fluticasone Propionate Nasal 50 MCG/SPRAY BOTTLE NS SCH (08:45)
[2019-12-31] MEDS: RESTASIS OPH OP SCH (08:45)
[2019-12-31] MEDS: Gabapentin 300 MG CAPSULE PO SCH ×2 (08:45→15:50)
[2019-12-31] MEDS ORDERED: lisinopriL 10 MG TABLET PO SCH (09:00)
[2019-12-31] MEDS: Budesonide/Formoterol 80/4.5 1 PUFF INH IH SCH (09:02)
[2019-12-31 11:53] VITALS: BP 186/80
[2019-12-31] MEDS ORDERED: *HR* LORazepam 0.5 MG TABLET PO ONE (16:03)
[2019-12-31] MEDS ORDERED: cefTRIAXone 2,000 MG in 0.9 % Sodium Chloride Mini Bag 100 ML IVPB SCH (17:00)
== END 2019-12-31 17:25 | disposition short-term general hospital (02) | DRG 291 ==
LOC: EMEROOPIK 15:18 → INPPIK 15:18
PROVIDERS: ADMIT Family Medicine; ATTEND Family Medicine